=== PATIENT | female | born 1930 | race Two or more races ===

== ENCOUNTER 2019-02-08 15:17 | Inpatient (IN) | payer MEDICARE, BC ==
[~2019-02-08] VITALS: Ht 162.6 cm; Wt 85.3 kg
[2019-02-08 02:10] VITALS: BP 179/68
--- NOTE | 2019-02-08 15:30 | NUR ---
PT [id number], SENT BY JAIDA FOR HIGH BP 233/88. PT AAOX4, BREATHING EVEN AND UNLABORED ON ROOM AIR W/ NAD NOTED. WILL CONTINUE TO MONITOR FOR SAFETY. PT CONNECTED TO MONITOR AND POX.
[2019-02-08] MEDS ORDERED: FEBU40TA PO (15:37)
[2019-02-08] MEDS ORDERED: NYST15OI TP (15:37)
[2019-02-08] MEDS ORDERED: ALBU8.5H8 IH (15:37)
[2019-02-08] MEDS ORDERED: CLON0.1T PO (15:37)
[2019-02-08] MEDS ORDERED: OXYC-128 PO (15:37)
[2019-02-08] MEDS ORDERED: METO25TA3 PO (15:37)
[2019-02-08] MEDS ORDERED: APIX5TAB PO (15:37)
[2019-02-08] MEDS ORDERED: EPOE1VIA12 SQ (15:37)
[2019-02-08] MEDS ORDERED: TRAM50TA2 PO (15:37)
[2019-02-08] MEDS ORDERED: INSU100V27 SQ (15:37)
[2019-02-08] MEDS ORDERED: ZINC1CAP2 PO (15:37)
[2019-02-08] MEDS ORDERED: ATOR10TA PO (15:37)
[2019-02-08] MEDS ORDERED: ASCO500T9 PO (15:37)
[2019-02-08] MEDS ORDERED: ACET-868 PO (15:37)
[2019-02-08] MEDS ORDERED: FURO-144 PO (15:37)
[2019-02-08] MEDS ORDERED: PANT40TA2 PO (15:37)
[2019-02-08] MEDS ORDERED: ZOLP5TAB8 PO (15:37)
[2019-02-08] MEDS ORDERED: METO5TAB87 PO (15:37)
[2019-02-08] MEDS ORDERED: BENZ-13 PO (15:37)
[2019-02-08] MEDS ORDERED: POLY17PO4 PO (15:37)
[2019-02-08] MEDS ORDERED: FOLI0.8T PO (15:37)
[2019-02-08] MEDS ORDERED: POTA10TA10 PO (15:37)
[2019-02-08] MEDS ORDERED: ONDA4TAB5 PO (15:37)
[2019-02-08] MEDS ORDERED: ALLA266C2 TP (15:37)
[2019-02-08] MEDS ORDERED: NEOM1PAC2 TP (15:37)
[2019-02-08] MEDS ORDERED: LOSA25TA27 PO (15:37)
[2019-02-08] MEDS ORDERED: ASPI-1152 PO (15:37)
[2019-02-08 16:08] LABS: BASOPHILS # (AUTO) 0.1 /CMM (0.0-0.2); BASOPHILS % (AUTO) 0.9 % (0.0-2.0); EOSINOPHILS % (AUTO) 0.9 % (0.0-6.0); HEMATOCRIT 34 % (33-45); HEMOGLOBIN 10.7 g/dL (11.5-14.8); LYMPHOCYTES # (AUTO) 1.7 /CMM (0.8-4.8); LYMPHOCYTES % (AUTO) 15.3 % (20.0-44.0); MEAN CORPUSCULAR HGB CONC 32 g/dl (31.0-36.0); MEAN CORPUSCULAR VOLUME 83 fL (82-100); MONOCYTES # (AUTO) 0.8 /CMM (0.1-1.30); MONOCYTES % (AUTO) 7.6 % (2.0-12.0); NEUTROPHILS # (AUTO) 8.3 /CMM (1.8-8.9); NEUTROPHILS % (AUTO) 75.3 % (43.0-81.0); PLATELET COUNT (AUTO) 697 /CMM (150-450); RED BLOOD CELL COUNT(AUTO) 4.11 MIL/uL (4.0-5.2)
--- NOTE | 2019-02-08 16:22 | NUR ---
ULTRASOUND AT BEDSIDE
[2019-02-08] MEDS ORDERED: DEXTROSE 50%-WATER 50 ML DISP.SYRIN IV PRN (17:30)
[2019-02-08] MEDS ORDERED: ACETAMINOPHEN 325 MG TABLET PO PRN (17:30)
[2019-02-08] MEDS ORDERED: ONDANSETRON HCL/PF 4 MG/2 ML VIAL IVP PRN (17:30)
[2019-02-08] MEDS ORDERED: ALBUTEROL FS 2.5 MG/3 ML VIAL.NEB NEB PRN (17:30)
[2019-02-08] MEDS ORDERED: ZOLPIDEM TARTRATE 5 MG TABLET PO PRN (17:30)
[2019-02-08] MEDS ORDERED: TRAMADOL HCL 50 MG TABLET PO PRN (17:30)
[2019-02-08 17:39] LABS: CALCIUM, SERUM 9.1 mg/dL (8.5-10.1); CARBON DIOXIDE 25 mmol/L (21-32); CHLORIDE 104 mmol/L (98-107); CREATININE 1.2 mg/dL (0.6-1.3); GLUCOSE 234 mg/dL (74-106); POTASSIUM 4.1 mmol/L (3.5-5.1); SODIUM SERUM 135 mmol/L (136-145); UREA NITROGEN, BLOOD 14 mg/dL (7-18)
--- NOTE | 2019-02-08 17:40 | NUR ---
PT REFUSING SECOND BLOOD DRAW
[2019-02-08 17:45] LABS: ALANINE AMINOTRANSFERASE 12 U/L (12-78); ALBUMIN 2.4 g/dL (3.4-5.0); ALKALINE PHOSPHATASE 105 U/L (46-116); ASPARTATE AMINOTRANSFERASE 20 U/L (15-37); BILIRUBIN,DIRECT 0.1 mg/dL (0.0-0.2); BILIRUBIN,TOTAL 0.2 mg/dL (0.2-1.0); TOTAL PROTEIN, SERUM 6.9 g/dL (6.4-8.2)
--- NOTE | 2019-02-08 17:57 | NUR ---
[employer] [place] PHONE# [phone]
--- NOTE | 2019-02-08 19:33 | NUR ---
PT WAS PROVIDED W/ BED MEDINA AND CLEAN NEW DIAPER. REMAINED WARM AND DRY. ON ONGOING MONITORING,
--- NOTE | 2019-02-08 19:57 | NUR ---
REPORT GIVEN TO [place] ON THIRD FLOOR
--- NOTE | 2019-02-08 20:10 | NUR ---
MS/RN RECEIVED PATIENT FROM [facility] VIA [facility]. PATIENT IS AWAKE, ALERT, ORIENTED, COMFORTABLE, NO C/O PAIN, NO DISTRESS NOTED, ADMISSION DONE PER PROTOCOL, PHOTOS ON TAKEN WITH PATIENT'S PERMISSION, PLAN OF CARE DISCUSSED WITH THE PATIENT VERBALIZED UNDERSTANDING AND AGREEMENT. TAUGHT THE USE OF CALL LIGHT AND PLACED IT AT BEDSIDE WITHIN REACH. FALL PRECAUTIONS PER PROTOCOL. WILL MONITOR.
--- NOTE | 2019-02-08 20:17 | NUR ---
PT WAS TRANSFERRED TO 313-2 UNDER ACLS
[2019-02-08] MEDS: CLONIDINE HCL 0.1 MG TABLET PO PRN (20:39)
--- NOTE | 2019-02-08 20:39 | NUR ---
MS/RN BP 179/68, PATIENT IS ASYMPTOMATIC, CLONIDINE 0.1 MG PO WAS GIVEN ORDERED. WILL MONITOR.
[2019-02-08 21:00] VITALS: BP 179/68
[2019-02-08] MEDS: POTASSIUM CHLORIDE 10 MEQ TABLET.SA PO SCH (21:00)
[2019-02-08] MEDS: oxyCODONE/APAP (5/325 MG) 1 UDTAB TABLET PO PRN (21:27)
[2019-02-08] MEDS: BLOOD SUGAR DIAGNOSTIC 1 EACH STRIP IN SCH (22:00)
--- NOTE | 2019-02-08 22:57 | NUR ---
MS/RN SON WYATT DESOUZA CALLED (PER PATIENT HE IS THE DPOA), WANTS TO SPEAK TO HIS MOTHER. HAD THE OPPORTUNITY TO ASK SON IF HE HAS THE ADVANCE DIRECTIVE OF HIS MOTHER, PER SON " I DON'T WANT TO TALK ABOUT IT AT THIS TIME." CALL WAS THEN TRANSFERRED TO THE PATIENT'S ROOM AND THEY TALKED.
[2019-02-08] MEDS: ATORVASTATIN 10 MG TABLET PO SCH (23:09)
--- NOTE | 2019-02-08 23:11 | NUR ---
MS/RN THE ACCU CHECK BLOOD SUGAR AT 2100 WAS 176, PATIENT REFUSED INSULIN.
[2019-02-09] VITALS (7 sets, daily range): BP systolic 143–193; BP diastolic 63–71
--- NOTE | 2019-02-09 02:01 | NUR ---
MS/RN PATIENT IS SLEEPING AT THIS TIME, APPEAR COMFORTABLE, NO DISTRESS NOTE, CALL LIGHT IN REACH. WILL CONTINUE TO MONITOR.
[2019-02-09] MEDS: oxyCODONE/APAP (5/325 MG) 1 UDTAB TABLET PO PRN (04:17)
[2019-02-09] MEDS: CLONIDINE HCL 0.1 MG TABLET PO PRN ×2 (05:24→10:48)
--- NOTE | 2019-02-09 05:28 | NUR ---
MS/RN BP 183/70 ONE HOUR AFTER PERCOCET, CLONIDINE 0.1 MG PO WAS GIVEN ORDERED. WILL CONTINUE TO MONITOR.
--- NOTE | 2019-02-09 06:16 | NUR ---
MS/RN PATIENT REFUSED BLOOD DRAW.
--- NOTE | 2019-02-09 06:25 | NUR ---
MS/RN ACCU CHECK BLOOD SUGAR 162, PATIENT REFUSED INSULIN. PATIENT IS AWAKE, ALERT, ORIENTED, COMFORTABLE, NO DISTRESS NOTED, ALL NEEDS ATTENDED AT THIS TIME, WILL CONTINUE TO MONITOR.
[2019-02-09] MEDS: BLOOD SUGAR DIAGNOSTIC 1 EACH STRIP IN SCH ×4 (06:26→22:00)
[2019-02-09] MEDS: PANTOPRAZOLE 40 MG TABLET.DR PO SCH (07:30)
--- NOTE | 2019-02-09 07:50 | NUR ---
ms rn received on bed, awake,alert,oriented x4,not in any form of distress, respirations even and unlabored,no sob noted, lungs are diminished,abdomen soft,positive, bowel sounds, denies pain at this time, all needs attended.
--- NOTE | 2019-02-09 08:00 | NUR ---
ms vance breakfast served, refused meds, will take later.
[2019-02-09] MEDS: NITROGLYCERIN 30 GM TUBE TP SCH ×2 (09:00→20:20)
[2019-02-09] MEDS ORDERED: LOSARTAN POTASSIUM 25 MG TABLET PO SCH (09:00)
[2019-02-09] MEDS ORDERED: ULORIC 40MG PO SCH (09:00)
--- NOTE | 2019-02-09 10:20 | NUR ---
ms rn due meds given,tolerated well, son at bedside.
[2019-02-09] MEDS: ASCORBIC ACID 500 MG TABLET PO SCH (10:48)
[2019-02-09] MEDS: BENZONATATE 100 MG CAPSULE PO SCH ×3 (10:48→18:51)
[2019-02-09] MEDS: ASPIRIN EC 81 MG TABLET.DR PO SCH (10:48)
[2019-02-09] MEDS: ZINC SULFATE 220 MG CAPSULE PO SCH ×2 (10:53→18:55)
[2019-02-09] MEDS: POTASSIUM CHLORIDE 10 MEQ TABLET.SA PO SCH ×2 (10:53→20:20)
[2019-02-09] MEDS: FOLIC ACID 1 MG TABLET PO SCH (10:54)
[2019-02-09] MEDS: FUROSEMIDE 40 MG TABLET PO SCH (10:54)
[2019-02-09] MEDS: VALSARTAN 80 MG TABLET PO SCH (10:54)
[2019-02-09] MEDS: METOPROLOL SUCCINATE 25 MG TAB.SR.24H PO SCH (10:54)
[2019-02-09] MEDS: hydrALAZINE HCL 50 MG TABLET PO SCH ×3 (10:55→18:51)
--- NOTE | 2019-02-09 11:00 | NUR ---
ms rn was seen by billie guevara/ orders made and carried out.
[2019-02-09] MEDS: APIXABAN 5 MG TABLET PO SCH ×2 (11:02→18:56)
[2019-02-09] MEDS: Z GUARD REMEDY 2 OZ OINT TP SCH ×3 (11:12→18:56)
[2019-02-09 12:22] LABS: BASOPHILS % (AUTO) 0.5 % (0.0-2.0); EOSINOPHILS % (AUTO) 1.2 % (0.0-6.0); HEMATOCRIT 32 % (33-45); HEMOGLOBIN 10.1 g/dL (11.5-14.8); LYMPHOCYTES # (AUTO) 1.5 /CMM (0.8-4.8); LYMPHOCYTES % (AUTO) 17.2 % (20.0-44.0); MEAN CORPUSCULAR HGB CONC 32 g/dl (31.0-36.0); MEAN CORPUSCULAR VOLUME 82 fL (82-100); MONOCYTES # (AUTO) 0.7 /CMM (0.1-1.30); NEUTROPHILS # (AUTO) 6.3 /CMM (1.8-8.9); NEUTROPHILS % (AUTO) 73.1 % (43.0-81.0); PLATELET COUNT (AUTO) 582 /CMM (150-450); RED BLOOD CELL COUNT(AUTO) 3.83 MIL/uL (4.0-5.2); WHITE BLOOD COUNT (AUTO) 8.7 K/uL (4.3-11.0)
[2019-02-09 12:31] LABS: CALCIUM, SERUM 8.7 mg/dL (8.5-10.1); CREATININE 1.2 mg/dL (0.6-1.3); MAGNESIUM 1.6 mg/dL (1.8-2.4); PHOSPHORUS 3.7 mg/dL (2.5-4.9); POTASSIUM 4.2 mmol/L (3.5-5.1)
[2019-02-09] MEDS: INSULIN REGULAR, HUMAN 100 UNIT/ML 3 ML VIAL SQ PRN ×2 (13:25→18:55)
[2019-02-09 13:49] LABS: THYROID STIMULATING HORMONE 3.184 uIU/mL (0.358-3.74)
--- NOTE | 2019-02-09 16:00 | NUR ---
ms rn on bed, no distress noted.
--- NOTE | 2019-02-09 18:00 | NUR ---
ms rn on bed, a dose of hydralazine given po for high b/p will reevaluate later.
[2019-02-09] MEDS: EPOETIN ALFA (10,000 UNIT) 10,000 UNIT/ML VIAL SQ SCH (18:52)
--- NOTE | 2019-02-09 19:05 | NUR ---
MS RN NOTES RECEIVED PT IN BED AWAKE AND ABLE TO MAKE NEEDS KNOWN. PT A/O X3. RESPIRATIONS EVEN AND UNLABORED WITH NO S/S OF ACUTE DISTRESS OR SOB NOTED. NO COMPLAINTS OF PAIN AT THIS TIME. PT NOTED WITH LAC #20G PATENT AND INTACT AND SL. SAFETY MEASURES IN PLACE WITH BED IN LOWEST LOCKED POSITION WITH SIDE RAILS UP X2. CALL LIGHT WITHIN REACH. WILL CONTINUE TO MONITOR.
[2019-02-09] MEDS: Magnesium 1GM/D5W 100ML PREMIX 100 ML IV SCH ×2 (20:01→21:16)
[2019-02-09] MEDS: ATORVASTATIN 10 MG TABLET PO SCH (22:00)
--- NOTE | 2019-02-09 22:32 | NUR ---
MS RN NOTES PT REFUSED 2200 MEDICATION LIPITOR WELL ACCUCHECK. WILL CONTINUE TO MONITOR.
[2019-02-10] MEDS: BLOOD SUGAR DIAGNOSTIC 1 EACH STRIP IN SCH ×4 (07:04→21:47)
--- NOTE | 2019-02-10 07:28 | NUR ---
MS RN NOTES RECEIVED PT IN BED AWAKE AND ABLE TO MAKE NEEDS KNOWN. PT A/O X3. RESPIRATIONS EVEN AND UNLABORED WITH NO S/S OF ACUTE DISTRESS OR SOB NOTED NOTED THROUGHOUT SHIFT. NO COMPLAINTS OF PAIN AT THIS TIME. PT NOTED WITH LAC #20G PATENT AND INTACT AND SL. SAFETY MEASURES IN PLACE WITH BED IN LOWEST LOCKED POSITION WITH SIDE RAILS UP X2. CALL LIGHT WITHIN REACH. WILL ENDORSE TO ONCOMING NURSE FOR YANETH.
[2019-02-10] MEDS: PANTOPRAZOLE 40 MG TABLET.DR PO SCH (07:30)
--- NOTE | 2019-02-10 07:39 | NUR ---
MS RN NOTES PT REFUSED SS COVERAGE OF INSULIN. PT ALSO REFUSED MORNING LABS AT THIS TIME.
--- NOTE | 2019-02-10 08:00 | NUR ---
MS RN NOTES PATIENT IN BED RESTING IN BED. PATIENT ALERT, ORIENTED X3. PATIENT DENIES ANY PAIN. PERIPHERAL IV INTACT PATENT. BED IN LOW LOCKED POSITION, CALL LIGHT WITHIN REACH. WILL CONTINUE TO MONITOR.
[2019-02-10] MEDS: FUROSEMIDE 40 MG TABLET PO SCH (08:53)
[2019-02-10] MEDS: ZINC SULFATE 220 MG CAPSULE PO SCH ×2 (08:53→16:24)
[2019-02-10] MEDS: ASPIRIN EC 81 MG TABLET.DR PO SCH (08:54)
[2019-02-10] MEDS: BENZONATATE 100 MG CAPSULE PO SCH ×3 (08:55→16:24)
[2019-02-10] MEDS: ASCORBIC ACID 500 MG TABLET PO SCH (08:55)
[2019-02-10] MEDS: POTASSIUM CHLORIDE 10 MEQ TABLET.SA PO SCH ×2 (08:55→21:37)
[2019-02-10] MEDS: FOLIC ACID 1 MG TABLET PO SCH (08:55)
[2019-02-10] MEDS: Z GUARD REMEDY 2 OZ OINT TP SCH ×3 (08:56→16:26)
[2019-02-10] MEDS: APIXABAN 5 MG TABLET PO SCH ×2 (08:58→16:25)
[2019-02-10] MEDS: METOPROLOL SUCCINATE 25 MG TAB.SR.24H PO SCH (09:02)
[2019-02-10] MEDS: VALSARTAN 80 MG TABLET PO SCH ×2 (09:02→16:24)
[2019-02-10] MEDS: hydrALAZINE HCL 50 MG TABLET PO SCH ×3 (09:02→16:24)
[2019-02-10] MEDS: NITROGLYCERIN 30 GM TUBE TP SCH ×2 (09:52→21:38)
[2019-02-10 10:30] VITALS: BP 160/59
[2019-02-10 10:58] LABS: CALCIUM, SERUM 9.5 mg/dL (8.5-10.1); CREATININE 1.2 mg/dL (0.6-1.3); POTASSIUM 4.2 mmol/L (3.5-5.1)
[2019-02-10] MEDS: INSULIN REGULAR, HUMAN 100 UNIT/ML 3 ML VIAL SQ PRN ×2 (12:44→17:17)
[2019-02-10] MEDS ORDERED: VALSARTAN 80 MG TABLET PO SCH (13:30)
[2019-02-10 16:00] VITALS: BP 167/64
[2019-02-10] MEDS: CLONIDINE HCL 0.1 MG TABLET PO PRN (18:37)
--- NOTE | 2019-02-10 19:01 | NUR ---
MS RN NOTES PATIENT IN BED RESTING NO SOB OR ACUTE DISTRESS NOTED. ALL NEEDS MET. ALL DUE MEDICATIONS ADMINISTERED. NO ACUTE CHANGES NOTED DURING SHIFT. BLOOD PRESSURE MANAGED WITH MEDICATIONS. MD AWARE OF READING. WILL ENDORSE CARE TO PM SHIFT.
--- NOTE | 2019-02-10 19:10 | NUR ---
MS/RN NOTES RECEIVED PT. LYING IN BED RESTING. PT. IS EASILY AROUSABLE TO NAME. PT. IS AWAKE, ALERT AND ORIENTED X3. BREATHING EVEN AND UNLABORED ON ROOM AIR. NO SOB, RESPIRATORY DISTRESS OR COMPLAINTS OF PAIN NOTED AT THIS TIME. PT. WITH LEFT AC 20 GAUGE IV SALINE LOCK PRESENT, PATENT AND INTACT. BED LOCKED AND IN LOWEST POSITION, SIDE RAILS UP X3, BED ALARM ON, CALL LIGHT WITHIN REACH, WILL CONTINUE TO MONITOR.
[2019-02-10 20:00] VITALS: BP 142/43
[2019-02-10] MEDS: ATORVASTATIN 10 MG TABLET PO SCH (21:37)
[2019-02-11] MEDS: oxyCODONE/APAP (5/325 MG) 1 UDTAB TABLET PO PRN ×2 (01:04→15:52)
[2019-02-11] MEDS: BLOOD SUGAR DIAGNOSTIC 1 EACH STRIP IN SCH ×4 (06:38→21:49)
--- NOTE | 2019-02-11 06:50 | NUR ---
MS/RN NOTES PT. IS LYING IN BED. PT. IS AWAKE, ALERT AND ORIENTED X2-3. BREATHING EVEN AND UNLABORED ON ROOM AIR. NO SOB, RESPIRATORY DISTRESS OR COMPLAINTS OF PAIN NOTED AT THIS TIME. PT. WITH LEFT AC 20 GAUGE IV SALINE LOCK PRESENT, PATENT AND INTACT. ALL PT. NEEDS MET. PT. REFUSED TURNING AND REPOSITIONING Q2H AND NEEDED THROUGHOUT THE NIGHT. EDUCATED PT. ON IMPORTANCE OF TURNING AND REPOSITIONING, PT. VERBALIZED UNDERSTANDING AND CONTINUED TO REFUSE. BED LOCKED AND IN LOWEST POSITION, SIDE RAILS UP X3, BED ALARM ON, CALL LIGHT WITHIN REACH, WILL ENDORSE TO DAYSHIFT NURSE FOR CONTINUITY OF CARE.
--- NOTE | 2019-02-11 07:29 | NUR ---
MS RN OPENING NOTES PATIENT RECEIVED IN BED ASLEEP. PATIENT IS BREATHING EVENLY, WITH SYMMETRICAL CHEST WALL ELEVATION AND NO SIGNS OF DISTRESS NOTES. PATIENT HAS A SL ON LAC GAUGE # 20. NO SIGNS OF INFILTRATION NOTES AT THE SITE. SAFETY PRECAUTIONS IN PLACE: BED IN LOW POSITION AND LOCKED, RAILS UP X 2, CALL LIGHT WITHIN REACH. WILL CONTINUE TO MONITOR THE PATIENT.
[2019-02-11 08:00] VITALS: BP 173/67
[2019-02-11] MEDS: ASCORBIC ACID 500 MG TABLET PO SCH (08:30)
[2019-02-11] MEDS: METOPROLOL SUCCINATE 25 MG TAB.SR.24H PO SCH (08:30)
[2019-02-11] MEDS: POTASSIUM CHLORIDE 10 MEQ TABLET.SA PO SCH ×2 (08:30→21:11)
[2019-02-11] MEDS: FOLIC ACID 1 MG TABLET PO SCH (08:30)
[2019-02-11] MEDS: PANTOPRAZOLE 40 MG TABLET.DR PO SCH (08:31)
[2019-02-11] MEDS: FUROSEMIDE 40 MG TABLET PO SCH (08:31)
[2019-02-11] MEDS: APIXABAN 5 MG TABLET PO SCH ×2 (08:33→18:26)
[2019-02-11] MEDS: ZINC SULFATE 220 MG CAPSULE PO SCH ×2 (09:19→18:25)
[2019-02-11] MEDS: BENZONATATE 100 MG CAPSULE PO SCH ×3 (09:19→18:25)
[2019-02-11] MEDS: hydrALAZINE HCL 50 MG TABLET PO SCH ×3 (09:19→17:00)
[2019-02-11] MEDS: VALSARTAN 80 MG TABLET PO SCH ×2 (09:20→18:30)
[2019-02-11] MEDS: ASPIRIN EC 81 MG TABLET.DR PO SCH (09:20)
[2019-02-11] MEDS: Z GUARD REMEDY 2 OZ OINT TP SCH ×3 (09:21→18:27)
[2019-02-11] MEDS: NITROGLYCERIN 30 GM TUBE TP SCH ×2 (09:21→21:14)
[2019-02-11] MEDS: AMLODIPINE BESYLATE 10 MG TABLET PO SCH (11:47)
[2019-02-11] MEDS: INSULIN REGULAR, HUMAN 100 UNIT/ML 3 ML VIAL SQ PRN ×3 (12:47→21:55)
--- NOTE | 2019-02-11 15:39 | NUR ---
RN NOTES OFFERED PATIENT TO OFF LOAD HER FEET THROUGHOUT THE DAY X2, BY PROVIDING A PILLOW UNDER HER KNEES AND LOWER LEGS. PATIENT REFUSED DUE TO DISCOMFORT. WILL OFFER AGAIN LATER.
[2019-02-11 16:00] VITALS: BP 136/52
--- NOTE | 2019-02-11 18:01 | NUR ---
M/S RN NOTES PATIENT GOING FOR CT SCAN OF ABDOMEN/PELVIS WITH [facility] VIA HOSPITAL BED. PATIENT IN NO ACUTE DISTRESS. PATIENT COMPLAINING OF ABDOMINAL PAIN, TOLERABLE AT THIS TIME WITH PAIN MEDICATION PRESCRIBED BY MD.
--- NOTE | 2019-02-11 18:58 | NUR ---
M/S RN NOTES PATIENT AWAKE, LYING IN BED, NO RESPIRATORY DISTRESS. NO C/O PAIN AT THIS TIME. SKIN WARM TO TOUCH, IV ACCESS SITE INTACT AND PATENT. PATIENT'S NEEDS ATTENDED. BED ON LOWEST LOCKED POSITION, CALL LIGHT WITHIN REACH. WILL ENDORSE TO ONCOMING NURSE.
--- NOTE | 2019-02-11 19:15 | NUR ---
RN medsurg opening notes Received Pt from morning nurse. Pt is alert and oriented X2-3. Pt is laying in bed comfortably watching TV. Respiration is normal in room air. No SOB. No S/S of distress noted. IV sites at LAC# 20 is clean, intact, patent and flush without resistance. Keep Pt clean, dry, warm and comfortable. Safety precautions is maintained. Bed at low position, brakes locked, side rails upX3 and call light is within reach. Will continue to monitor.
[2019-02-11 20:00] VITALS: BP 135/56
[2019-02-11 21:02] VITALS: BP 137/67
[2019-02-11] MEDS: METOPROLOL TARTRATE 50 MG TABLET PO SCH (21:11)
[2019-02-11] MEDS: ATORVASTATIN 10 MG TABLET PO SCH (21:11)
[2019-02-11 22:48] VITALS: BP 112/42
[2019-02-12] MEDS: BLOOD SUGAR DIAGNOSTIC 1 EACH STRIP IN SCH ×2 (06:30→11:45)
[2019-02-12] MEDS: INSULIN REGULAR, HUMAN 100 UNIT/ML 3 ML VIAL SQ PRN ×2 (06:31→11:44)
--- NOTE | 2019-02-12 07:00 | NUR ---
RN medsurg closing notes Pt is resting in bed comfortably. Respiration is normal in room air. No SOB. No S/S of distress noted. VS is stable. Afebrile. IV sites LAC# 20 is clean, intact, patent and SL. Routine meds were given as ordered. Kept Pt clean, dry, warm and comfortable. All needs met and attended. Safety precautions is maintained. Bed at low position, brakes locked, side rails upX3 and call light is within reach. Will endorse to morning nurse for YANETH.
--- NOTE | 2019-02-12 07:37 | NUR ---
MS RN OPENING NOTE RECEIVED PATIENT IN BED SLEEPING AT THIS TIME. PATIENT IN NO ACUTE DISTRESS. NO SOB NOTED. PATIENT BREATHING IS EVEN AND UNLABORED. PATIENT BED ALARM IS ON. PATIENT SAFETY PRECAUTIONS IN PLACE. PATIENT BED IS LOCKED AND IN LOWEST POSITION. CALL LIGHT WITHIN REACH. WILL CONTINUE TO MONITOR.
[2019-02-12 08:00] VITALS: BP 139/50
[2019-02-12] MEDS: PANTOPRAZOLE 40 MG TABLET.DR PO SCH (08:10)
[2019-02-12] MEDS: APIXABAN 5 MG TABLET PO SCH ×2 (08:56→16:46)
[2019-02-12] MEDS: NITROGLYCERIN 30 GM TUBE TP SCH (08:58)
[2019-02-12] MEDS: ZINC SULFATE 220 MG CAPSULE PO SCH ×2 (08:59→16:47)
[2019-02-12] MEDS: VALSARTAN 80 MG TABLET PO SCH ×2 (08:59→16:47)
[2019-02-12] MEDS: ASPIRIN EC 81 MG TABLET.DR PO SCH (08:59)
[2019-02-12] MEDS: BENZONATATE 100 MG CAPSULE PO SCH ×3 (08:59→16:47)
[2019-02-12] MEDS: POTASSIUM CHLORIDE 10 MEQ TABLET.SA PO SCH (09:00)
[2019-02-12] MEDS: ASCORBIC ACID 500 MG TABLET PO SCH (09:00)
[2019-02-12] MEDS: FOLIC ACID 1 MG TABLET PO SCH (09:00)
[2019-02-12] MEDS: FUROSEMIDE 40 MG TABLET PO SCH (09:00)
[2019-02-12] MEDS: METOPROLOL TARTRATE 50 MG TABLET PO SCH (09:00)
[2019-02-12] MEDS: AMLODIPINE BESYLATE 10 MG TABLET PO SCH (09:00)
[2019-02-12] MEDS: hydrALAZINE HCL 50 MG TABLET PO SCH ×3 (09:00→16:47)
[2019-02-12] MEDS: Z GUARD REMEDY 2 OZ OINT TP SCH ×3 (09:05→16:52)
[2019-02-12] MEDS: oxyCODONE/APAP (5/325 MG) 1 UDTAB TABLET PO PRN (12:09)
--- NOTE | 2019-02-12 12:53 | NUR ---
MS RN NOTE PER MARIE REECE DC NITRO OINTMENT.
[2019-02-12] MEDS ORDERED: NA PHOS,M-B/NA PHOS,DI-BA 1 EA ENEMA RC PRN (13:00)
[2019-02-12] MEDS ORDERED: BISACODYL SUPP (10 MG) 10 MG/SUPP.RECT SUPP.RECT RC PRN (13:00)
[2019-02-12] MEDS ORDERED: METO50TA16 PO (14:21)
[2019-02-12] MEDS ORDERED: VALS80TA2 PO (14:21)
[2019-02-12] MEDS ORDERED: AMLO10TA7 PO (14:21)
[2019-02-12] MEDS ORDERED: HYDR-4077 PO (14:21)
[2019-02-12 16:00] VITALS: BP 149/57
[2019-02-12 16:01] LABS: BASOPHILS # (AUTO) 0.1 /CMM (0.0-0.2); BASOPHILS % (AUTO) 0.7 % (0.0-2.0); EOSINOPHILS % (AUTO) 0.7 % (0.0-6.0); HEMATOCRIT 36 % (33-45); HEMOGLOBIN 10.9 g/dL (11.5-14.8); LYMPHOCYTES # (AUTO) 0.6 /CMM (0.8-4.8); LYMPHOCYTES % (AUTO) 3.9 % (20.0-44.0); MEAN CORPUSCULAR HGB CONC 30 g/dl (31.0-36.0); MEAN CORPUSCULAR VOLUME 86 fL (82-100); MONOCYTES # (AUTO) 1.4 /CMM (0.1-1.30); MONOCYTES % (AUTO) 8.2 % (2.0-12.0); NEUTROPHILS # (AUTO) 14.2 /CMM (1.8-8.9); NEUTROPHILS % (AUTO) 86.5 % (43.0-81.0); PLATELET COUNT (AUTO) 657 /CMM (150-450); RED BLOOD CELL COUNT(AUTO) 4.21 MIL/uL (4.0-5.2); WHITE BLOOD COUNT (AUTO) 16.4 K/uL (4.3-11.0)
[2019-02-12 16:17] LABS: BAND % (MANUAL) 1 % (0.0-5.0); LYMPHOCYTES % (MANUAL) 8 % (16-48); MONOCYTES % (MANUAL) 8 % (0-11.0); NEUTROPHILS % (MANUAL) 83 (42-76)
[2019-02-12] MEDS ORDERED: INFLUENZA VACCINE 2019-20 0.5 ML DISP.SYRIN IM ONE (16:30)
[2019-02-12 16:47] VITALS: BP 139/62
[2019-02-12] MEDS: EPOETIN ALFA (10,000 UNIT) 10,000 UNIT/ML VIAL SQ SCH (16:52)
--- NOTE | 2019-02-12 17:41 | NUR ---
MS SIFTING OPERATOR NOTE PATIENT MEDICALLY STABLE FOR DISCHARGE. PATIENT IN NO ACUTE DISTRESS. NO SOB NOTED. PATIENT BREATHING IS EVEN AND UNLABORED. DC INSTRUCTIONS PROVIDED TO PATIENT AND SON. PATIENT AND SON VERBALIZED UNDERSTANDING. PATIENT ID BAND REMOVED. IV REMOVED. PATIENT SKIN ASSESSED, WITH NO NEW SKIN BREAKDOWN NOTED. PATIENT HAS ALL BELONGINGS WITH SON, AND PATIENT ACKNOWLEDGED AND SIGNED. PATIENT KEPT CLEAN, DRY AND COMFORTABLE THROUGHOUT SHIFT. PATIENT TURNED AND REPOSITIONED Q2H AND EXTREMITIES OFFLOADED ON PILLOWS. NEEDS AND CONCERNS ADDRESSED. [facility] REPORT GIVEN TO JOSÉ LUIS RN. PATIENT PICKED UP BY EMT AND WENT BY [facility] TO AMBULANCE. MD AWARE OF DISCHARGE.
== END 2019-02-12 17:43 | DRG 304 ==
LOC: ER 15:27 → TELE 19:35 → MED 02-09 08:40
PROVIDERS: ADMIT Nurse Practitioner Acute Care; ATTEND Nurse Practitioner Acute Care
DX: I16.0 Hypertensive urgency (principal); I50.33 Acute on chronic diastolic (congestive) heart failure; D68.59 Other primary thrombophilia; I25.10 Atherosclerotic heart disease of native coronary artery without angina pectoris; I48.0 Paroxysmal atrial fibrillation; E11.9 Type 2 diabetes mellitus without complications; I27.20 Pulmonary hypertension, unspecified; I11.0 Hypertensive heart disease with heart failure; J44.9 Chronic obstructive pulmonary disease, unspecified; Z95.5 Presence of coronary angioplasty implant and graft; Z79.01 Long term (current) use of anticoagulants; E78.5 Hyperlipidemia, unspecified; G89.29 Other chronic pain; M10.9 Gout, unspecified; E66.9 Obesity, unspecified; G47.33 Obstructive sleep apnea (adult) (pediatric); M54.9 Dorsalgia, unspecified; Z87.891 Personal history of nicotine dependence; K59.00 Constipation, unspecified; Z68.35 Body mass index [BMI] 35.0-35.9, adult; R10.9 Unspecified abdominal pain
CPT/HCPCS: 36415; 71045-TC; 80048-TC; 80061-TC; 80076-TC; 82962-TC; 83735-TC; 84100-TC; 84443-TC; 84484-TC; 85025-TC; 87081-TC; 93307-TC; 93970-TC; 97116-TC; 97530-TC; G0378; J0885; J1815; J2405; J3475; J7030; Q2036

== ENCOUNTER 2019-03-16 14:49 | Inpatient (IN) | payer MEDICARE, BC ==
[~2019-03-16] VITALS: Ht 160 cm; Wt 78.9 kg
[~2019-03-16 14:49] MED LIST: ACET-868 PO; ALBU8.5H8 IH; ALLA266C2 TP; AMLO10TA7 PO; APIX5TAB PO; ASCO500T9 PO; ASPI-1152 PO; ATOR10TA PO; BENZ-13 PO; CLON0.1T PO; EPOE1VIA12 SQ; FEBU40TA PO; FOLI0.8T PO; FURO-144 PO; HYDR-4077 PO; INSU100V27 SQ; LOSA25TA27 PO; METO50TA16 PO; METO5TAB87 PO; NEOM1PAC2 TP; NYST15OI TP; ONDA4TAB5 PO; OXYC-128 PO; PANT40TA2 PO; POLY17PO4 PO; POTA10TA10 PO; TRAM50TA2 PO; VALS80TA2 PO; ZINC1CAP2 PO; ZOLP5TAB8 PO
--- NOTE | 2019-03-16 14:52 | NUR ---
AAOX3, BIB son to ER from [facility], located within [facility] for SOB with SPO2=88% on RA. According to the son, she finished taking Z-pack yesterday for PNA. Patient also c/o wound bleeding to left inner thigh. Patient is on Eliquis. Skin is warm and dry. Placed on the monitor. Patient placed on NC at 2L/min. Dr Reynaga made aware. Addendum: 03/16/19 at 1547 by MILE Bilateral lungs diminished on auscultation.
[2019-03-16 15:49] LABS: BASOPHILS # (AUTO) 0.1 /CMM (0.0-0.2); BASOPHILS % (AUTO) 0.8 % (0.0-2.0); EOSINOPHILS % (AUTO) 0.7 % (0.0-6.0); HEMATOCRIT 32 % (33-45); HEMOGLOBIN 9.8 g/dL (11.5-14.8); LYMPHOCYTES # (AUTO) 1.3 /CMM (0.8-4.8); MEAN CORPUSCULAR HGB CONC 31 g/dl (31.0-36.0); MEAN CORPUSCULAR VOLUME 81 fL (82-100); MONOCYTES % (AUTO) 7.4 % (2.0-12.0); NEUTROPHILS # (AUTO) 10.8 /CMM (1.8-8.9); NEUTROPHILS % (AUTO) 81.1 % (43.0-81.0); RED BLOOD CELL COUNT(AUTO) 3.88 MIL/uL (4.0-5.2); WHITE BLOOD COUNT (AUTO) 13.3 K/uL (4.3-11.0)
[2019-03-16 15:53] LABS: PLATELET COUNT (AUTO) 999 /CMM (150-450)
[2019-03-16 15:57] LABS: CALCIUM, SERUM 9.9 mg/dL (8.5-10.1); CARBON DIOXIDE 23 mmol/L (21-32); CHLORIDE 103 mmol/L (98-107); CREATININE 1.6 mg/dL (0.6-1.3); GLUCOSE 273 mg/dL (74-106); POTASSIUM 4.9 mmol/L (3.5-5.1); SODIUM SERUM 135 mmol/L (136-145); UREA NITROGEN, BLOOD 28 mg/dL (7-18)
[2019-03-16 16:09] LABS: ALANINE AMINOTRANSFERASE 12 U/L (12-78); ALBUMIN 3.1 g/dL (3.4-5.0); ALKALINE PHOSPHATASE 102 U/L (46-116); ASPARTATE AMINOTRANSFERASE 17 U/L (15-37); B-TYPE NATRIURETIC PEPTIDE 12182 PG/ML (0-125); BILIRUBIN,DIRECT 0.1 mg/dL (0.0-0.2); BILIRUBIN,TOTAL 0.4 mg/dL (0.2-1.0); TOTAL PROTEIN, SERUM 7.8 g/dL (6.4-8.2)
[2019-03-16] MEDS ORDERED: BENZ1LOZ58 MM (16:26)
[2019-03-16] MEDS ORDERED: CALC-534 PO (16:26)
[2019-03-16] MEDS ORDERED: LOPE2CAP40 PO (16:26)
[2019-03-16] MEDS ORDERED: MULT1TAB73 PO (16:26)
[2019-03-16] MEDS ORDERED: AZIT250T13 PO (16:26)
[2019-03-16] MEDS ORDERED: FUROSEMIDE 40 MG/4 ML VIAL ONE (16:28)
[2019-03-16] MEDS ORDERED: FUROSEMIDE 40 MG/4 ML VIAL IV ONE (16:30)
[2019-03-16 16:55] LABS: LYMPHOCYTES % (MANUAL) 9 % (16-48); MONOCYTES % (MANUAL) 8 % (0-11.0); NEUTROPHILS % (MANUAL) 81 (42-76)
[2019-03-16 16:56] LABS: EOSINOPHILS % (MANUAL) 2 % (0-4)
--- NOTE | 2019-03-16 17:00 | NUR ---
CALLED [facility], JENNIFERD KIERRA
--- NOTE | 2019-03-16 17:25 | NUR ---
CALLED NURSING SUP FOR BED
[2019-03-16] MEDS ORDERED: Z GUARD REMEDY 2 OZ OINT TP PRN (18:00)
[2019-03-16] MEDS: FUROSEMIDE 40 MG/4 ML VIAL IV SCH ×2 (18:00→23:38)
[2019-03-16] MEDS ORDERED: ZOLPIDEM TARTRATE 5 MG TABLET PO PRN (18:00)
[2019-03-16] MEDS ORDERED: ONDANSETRON HCL/PF 4 MG/2 ML VIAL IVP PRN (18:00)
[2019-03-16] MEDS ORDERED: ACETAMINOPHEN 325 MG TABLET PO PRN (18:00)
--- NOTE | 2019-03-16 18:30 | NUR ---
wheeled patient via gurney accompanied by RN and EMT in no distress. Linda RN at bedside to assume care.
[2019-03-16 18:40] VITALS: BP 158/63
--- NOTE | 2019-03-16 18:40 | NUR ---
MACHINIST INSTRUCTOR NOTES PT CAME FROM ER VIA STRETCHER. PT A/OX4. PT ON SUPPLEMENTARY OXYGEN AT 2LPM VIA NC, WITH NO RESPIRATORY DISTRESS NOTED. PT DENIES ANY PAIN OR DISCOMFORT AT THIS TIME. PIV TO RAC G20, FLUSHED WITH NS, INTACT AND OPERATIONAL. PT KEPT COMFORTABLE IN BED. VS TAKEN. PT'S BED IN LOWEST, LOCKED POSITION WITH SR X3. WILL ENDORSE TO INCOMING ADVENTURE EDUCATION TEACHER NURSE FOR ADMISSION PROCESS AND YANETH.
--- NOTE | 2019-03-16 18:43 | NUR ---
SPLICING MACHINE OPERATOR AUTOMATIC NOTES IVP LASIX 40MG SCHEDULED AT 1800 NOT GIVEN. PER WEB MARKETING SPECIALIST/EMILY, SAME MEDICATION AND DOSE GIVEN AT ER AT AROUND 1730. PT AWARE.
--- NOTE | 2019-03-16 18:43 | NUR ---
BIOLOGY LECTURER NOTES PT HOOKED ON TELEMONITORING SR 69.
[2019-03-16] MEDS ORDERED: ALBUTEROL FS 2.5 MG/0.5 ML VIAL.NEB NEB PRN (19:30)
[2019-03-16 20:40] VITALS: BP 149/61
[2019-03-17] VITALS: BP_SYST 141; BP_SYST 159; BP_DIAS 52; BP_DIAS 73
--- NOTE | 2019-03-17 03:48 | NUR ---
MS RN NOTES PATIENT REFUSED LAB DRAW- EDUCATED AND EXPLAINED THE IMPORTANCE AND STILL DENIED. WILL CONTINUE TO MONITOR.
[2019-03-17 04:00] VITALS: BP 159/73
[2019-03-17] MEDS: FUROSEMIDE 40 MG/4 ML VIAL IV SCH ×3 (05:25→17:03)
--- NOTE | 2019-03-17 06:14 | NUR ---
ASSIGNMENT DESK ASSISTANT CLOSING NOTES PATIENT CURRENTLY RESTING IN BED A/O X 4, COMPLAINTS SHE WAS NOT GETTING ENOUGH REST DUE TO CONSTANT INTERRUPTION. ON 2L OF O2 VIA NC BREATHING EVEN AND UNLABORED.NO COMPLAINTS OF PAIN OR DISCOMFORT. IV LOCATED ON R AC #20 SL. TELE MONITORING READING SR WITH PAC'S 67-69. SAFETY PRECAUTIONS IN PLACE WITH BED IN LOWEST POSITION, CALL LIGHT WITHIN REACH, BREAKS ON, SIDE RAIL S UP. PATIENT WAS KEPT CLEAN AND DRY THROUGHOUT THE NIGHT, ALL NEEDS ATTENDED TO. PATIENT WAS KEPT CLEAN AND DRY THROUGHOUT THE NIGHT, ALL NEEDS ATTENDED TO. WILL ENDORSE TO ONCOMING SHIFT ABOUT YANETH.
[2019-03-17 06:25] LABS: BASOPHILS # (AUTO) 0.1 /CMM (0.0-0.2); BASOPHILS % (AUTO) 0.7 % (0.0-2.0); EOSINOPHILS % (AUTO) 1.7 % (0.0-6.0); HEMATOCRIT 28 % (33-45); HEMOGLOBIN 8.9 g/dL (11.5-14.8); LYMPHOCYTES # (AUTO) 1.4 /CMM (0.8-4.8); LYMPHOCYTES % (AUTO) 12.6 % (20.0-44.0); MEAN CORPUSCULAR HGB CONC 32 g/dl (31.0-36.0); MEAN CORPUSCULAR VOLUME 81 fL (82-100); MONOCYTES # (AUTO) 0.8 /CMM (0.1-1.30); MONOCYTES % (AUTO) 7.6 % (2.0-12.0); NEUTROPHILS # (AUTO) 8.5 /CMM (1.8-8.9); NEUTROPHILS % (AUTO) 77.4 % (43.0-81.0); PLATELET COUNT (AUTO) 789 /CMM (150-450); RED BLOOD CELL COUNT(AUTO) 3.42 MIL/uL (4.0-5.2)
[2019-03-17 07:11] LABS: ALANINE AMINOTRANSFERASE 14 U/L (12-78); ALBUMIN 2.8 g/dL (3.4-5.0); ALKALINE PHOSPHATASE 83 U/L (46-116); ASPARTATE AMINOTRANSFERASE 12 U/L (15-37); BILIRUBIN,TOTAL 0.3 mg/dL (0.2-1.0); CALCIUM, SERUM 9.7 mg/dL (8.5-10.1); CARBON DIOXIDE 24 mmol/L (21-32); CHLORIDE 103 mmol/L (98-107); CREATININE 1.5 mg/dL (0.6-1.3); GLUCOSE 180 mg/dL (74-106); MAGNESIUM 1.8 mg/dL (1.8-2.4); PHOSPHORUS 3.7 mg/dL (2.5-4.9); POTASSIUM 4.1 mmol/L (3.5-5.1); SODIUM SERUM 137 mmol/L (136-145); TOTAL PROTEIN, SERUM 7.2 g/dL (6.4-8.2); UREA NITROGEN, BLOOD 25 mg/dL (7-18)
[2019-03-17 08:00] VITALS: BP 163/71
--- NOTE | 2019-03-17 08:00 | NUR ---
RN OPENING NOTE PT WAS RECEIVED IN BED AT LOWEST AND LOCKED POSITION WITH SIDE RAILS UPX2, A/O X4, BREATHING EVEN AND UNLABORED ON 2L VIA NC, NO S/S OF ANY DISTRESS OR PAIN NOTED AT THIS TIME, IV IS PATENT AND INTACT, SAFETY PRECAUTIONS IN PLACE, CALL LIGHT IN REACH, WILL MONITOR ACCORDINGLY
[2019-03-17] MEDS: AMLODIPINE BESYLATE 10 MG TABLET PO SCH (08:35)
[2019-03-17] MEDS: Z GUARD REMEDY 2 OZ OINT TP SCH ×3 (08:37→16:15)
--- NOTE | 2019-03-17 09:30 | NUR ---
RN NOTE LEFT THIGH WOUND DRESSING CHANGED AT THIS TIME AND WRAPPED WITH KERLIX, WILL CONTINUE TO MONITOR
[2019-03-17 09:35] LABS: CHOLESTEROL 97 mg/dL (<200); HDL CHOLESTEROL 55 mg/dL (40-60); LDL 30 mg/dL (0-99); THYROID STIMULATING HORMONE 1.848 uIU/mL (0.358-3.74); TRIGLYCERIDES 76 mg/dL (30-150)
--- NOTE | 2019-03-17 13:59 | NUR ---
RN NOTE LEFT THIGH DRESSING ASSESSED AGAIN AT THIS TIME AND MINIMAL BLEEDING NOTED, WILL CONTINUE TO MONITOR
[2019-03-17 16:00] VITALS: BP 162/67
--- NOTE | 2019-03-17 18:04 | NUR ---
RN CLOSING NOTE PT IN BED AT LOWEST AND LOCKED POSITION WITH SIDE RAILS UPX2, A/O X4, BREATHING EVEN AND UNLABORED WITH NO DISTRESS OR PAIN AT THIS TIME, IV IS PATENT AND INTACT, DRESSING INTACT WITH NO BLEEDING NOTED OF THIS TIME, SAFETY PRECAUTIONS IN PLACE, CALL LIGHT IN REACH, ALL NEEDS ATTENDED TO, WILL ENDORSE TO NIGHT RN FOR YANETH.
[2019-03-17 20:00] VITALS: BP 149/62
[2019-03-17] MEDS: oxyCODONE/APAP (5/325 MG) 1 UDTAB TABLET PO PRN (20:41)
[2019-03-18] MEDS: FUROSEMIDE 40 MG/4 ML VIAL IV SCH ×4 (00:23→17:18)
[2019-03-18 06:33] LABS: BASOPHILS # (AUTO) 0.1 /CMM (0.0-0.2); BASOPHILS % (AUTO) 1.1 % (0.0-2.0); EOSINOPHILS % (AUTO) 3.1 % (0.0-6.0); HEMATOCRIT 29 % (33-45); HEMOGLOBIN 9.1 g/dL (11.5-14.8); LYMPHOCYTES # (AUTO) 1.6 /CMM (0.8-4.8); LYMPHOCYTES % (AUTO) 14.9 % (20.0-44.0); MEAN CORPUSCULAR HGB CONC 32 g/dl (31.0-36.0); MEAN CORPUSCULAR VOLUME 81 fL (82-100); MONOCYTES % (AUTO) 9.9 % (2.0-12.0); NEUTROPHILS # (AUTO) 7.4 /CMM (1.8-8.9); PLATELET COUNT (AUTO) 771 /CMM (150-450); RED BLOOD CELL COUNT(AUTO) 3.55 MIL/uL (4.0-5.2); WHITE BLOOD COUNT (AUTO) 10.4 K/uL (4.3-11.0)
--- NOTE | 2019-03-18 06:33 | NUR ---
MS RN NOTES AWAKE & RESPONSIVE. NOT IN ANY DISTRESS. NO SOB NOTED. DENIES ANY PAIN OR DISCOMFORT AT THIS TIME. WITH IV-HL PATENT & INTACT. AM CARE DONE. MONITORED ACCORDINGLY. CALL LIGHT WITHIN REACH. BED IN LOWEST POSITION. SR UP X 3 WITH BED ALARM ON FOR SAFETY. WILL ENDORSE TO NEXT SHIFT.
[2019-03-18 07:01] LABS: ALANINE AMINOTRANSFERASE 11 U/L (12-78); ALBUMIN 2.6 g/dL (3.4-5.0); ALKALINE PHOSPHATASE 81 U/L (46-116); ASPARTATE AMINOTRANSFERASE 15 U/L (15-37); CALCIUM, SERUM 9.4 mg/dL (8.5-10.1); CARBON DIOXIDE 28 mmol/L (21-32); CHLORIDE 102 mmol/L (98-107); CREATININE 1.3 mg/dL (0.6-1.3); GLUCOSE 116 mg/dL (74-106); MAGNESIUM 1.5 mg/dL (1.8-2.4); PHOSPHORUS 3.7 mg/dL (2.5-4.9); SODIUM SERUM 137 mmol/L (136-145); TOTAL PROTEIN, SERUM 6.8 g/dL (6.4-8.2); UREA NITROGEN, BLOOD 22 mg/dL (7-18)
[2019-03-18 07:52] LABS: BILIRUBIN,TOTAL 0.3 mg/dL (0.2-1.0)
[2019-03-18 08:00] VITALS: BP_SYST 104; BP_SYST 169; BP_DIAS 58; BP_DIAS 91
[2019-03-18] MEDS: AMLODIPINE BESYLATE 10 MG TABLET PO SCH (09:24)
[2019-03-18] MEDS: Z GUARD REMEDY 2 OZ OINT TP SCH ×3 (09:25→16:32)
[2019-03-18] MEDS: Magnesium 1GM/D5W 100ML PREMIX 100 ML IV SCH ×2 (10:22→11:39)
[2019-03-18] MEDS: hydrALAZINE HCL 50 MG TABLET PO SCH ×2 (12:37→16:31)
--- NOTE | 2019-03-18 13:40 | NUR ---
Per dr. Dong wean off patient from O2 gradually
[2019-03-18 16:00] VITALS: BP 149/52
--- NOTE | 2019-03-18 18:42 | NUR ---
Patient resting in bed , a/o x4 . Breathing even and unlabored on O2 0.5l via nasal canula. All needs attended. IV line remains intact and patent . Safety precautions in place, call light within reach
[2019-03-18 20:00] VITALS: BP 140/70
[2019-03-18] MEDS: oxyCODONE/APAP (5/325 MG) 1 UDTAB TABLET PO PRN (20:35)
[2019-03-19] MEDS: FUROSEMIDE 40 MG/4 ML VIAL IV SCH ×4 (00:32→11:27)
--- NOTE | 2019-03-19 06:00 | NUR ---
MS RN NOTES PT REFUSED TO HAVE HER LASIX. EXPLAINED TO PT IMPORTANCE OF MEDICATIONS IN HER POC BUT PT STILL REFUSED. PT STATES "I'M GOING HOME TODAY SO I DON'T WANT IT FOR NOW."
[2019-03-19 07:54] VITALS: BP 163/66
[2019-03-19 08:00] VITALS: BP 163/66
[2019-03-19 08:29] LABS: BASOPHILS # (AUTO) 0.1 /CMM (0.0-0.2); BASOPHILS % (AUTO) 0.7 % (0.0-2.0); EOSINOPHILS % (AUTO) 1.5 % (0.0-6.0); HEMATOCRIT 31 % (33-45); HEMOGLOBIN 9.5 g/dL (11.5-14.8); LYMPHOCYTES % (AUTO) 8.4 % (20.0-44.0); MEAN CORPUSCULAR HGB CONC 31 g/dl (31.0-36.0); MEAN CORPUSCULAR VOLUME 81 fL (82-100); MONOCYTES % (AUTO) 8.4 % (2.0-12.0); NEUTROPHILS # (AUTO) 10.1 /CMM (1.8-8.9); PLATELET COUNT (AUTO) 814 /CMM (150-450); RED BLOOD CELL COUNT(AUTO) 3.85 MIL/uL (4.0-5.2); WHITE BLOOD COUNT (AUTO) 12.4 K/uL (4.3-11.0)
[2019-03-19] MEDS: AMLODIPINE BESYLATE 10 MG TABLET PO SCH (08:59)
[2019-03-19] MEDS: hydrALAZINE HCL 50 MG TABLET PO SCH ×2 (08:59→13:49)
--- NOTE | 2019-03-19 09:00 | NUR ---
Patient complain of constipation . Will administrate milk of magnesia .
[2019-03-19] MEDS: Z GUARD REMEDY 2 OZ OINT TP SCH (09:01)
[2019-03-19] MEDS ORDERED: MAGNESIUM HYDROXIDE 30 ML UDC PO PRN (11:30)
[2019-03-19 13:49] VITALS: BP 156/67
--- NOTE | 2019-03-19 16:30 | NUR ---
Patient had large BM with abdominal pain. Patient cleaned and repositioned. Pain decreased
[2019-03-19] MEDS: oxyCODONE/APAP (5/325 MG) 1 UDTAB TABLET PO PRN (16:50)
--- NOTE | 2019-03-19 17:00 | NUR ---
patient cleared for d/c by MD , patient awake alert and orientedx4, breathing unlabored and even on room air with saturation 94%. VS are stable and within baseline. Patient medicated before transfer due to back pain 07/27. All needs attended. IV line removed, ID wrist band removed. Patient educated and d/c instructions provided. Patient verbalized understanding. Patient has redness on upper back , sacral aria and b/l lower and upper extremities discoloration. Patient refused to take D/C pictures; education provided and patient still strongly refusing ,stated " I'm very tired, I cannot do it". Patient picked up by ambulance for transfer back to Assisted Living facility
== END 2019-03-19 17:00 | disposition home health service (06) | DRG 291 ==
LOC: ER 15:03 → TELE 17:42 → MED 03-17 09:18
PROVIDERS: ADMIT Internal Medicine; ATTEND Internal Medicine
DX: I13.0 Hypertensive heart and chronic kidney disease with heart failure and stage 1 through stage 4 chronic kidney disease, or unspecified chronic kidney disease (principal); J96.21 Acute and chronic respiratory failure with hypoxia; N17.0 Acute kidney failure with tubular necrosis; I50.33 Acute on chronic diastolic (congestive) heart failure; D68.59 Other primary thrombophilia; S05.92XA Unspecified injury of left eye and orbit, initial encounter; I25.10 Atherosclerotic heart disease of native coronary artery without angina pectoris; I48.0 Paroxysmal atrial fibrillation; J44.9 Chronic obstructive pulmonary disease, unspecified; I27.20 Pulmonary hypertension, unspecified; D63.8 Anemia in other chronic diseases classified elsewhere; N18.9 Chronic kidney disease, unspecified; E11.22 Type 2 diabetes mellitus with diabetic chronic kidney disease; Z79.01 Long term (current) use of anticoagulants; E78.5 Hyperlipidemia, unspecified; Z87.01 Personal history of pneumonia (recurrent); D47.3 Essential (hemorrhagic) thrombocythemia; X58.XXXA Exposure to other specified factors, initial encounter; Y92.89 Other specified places as the place of occurrence of the external cause; G89.29 Other chronic pain; M54.5 Low back pain
CPT/HCPCS: 36415; 71045-TC; 80048-TC; 80053-TC; 80061-TC; 80076-TC; 83605-TC; 83735-TC; 83880; 84100-TC; 84443-TC; 84484-TC; 85025-TC; 85730-TC; 87040-TC; 87081-TC; A6253; G0378; J1940; J3475; J7050

== ENCOUNTER 2019-04-28 16:17 | Inpatient (IN) | payer MEDICARE, BC ==
[~2019-04-28] VITALS: Ht 160 cm; Wt 93.0 kg
[~2019-04-28 16:17] MED LIST changes: -ASCO500T9 PO; +AZIT250T13 PO; +BENZ1LOZ58 MM; +CALC-534 PO; +LOPE2CAP40 PO; -LOSA25TA27 PO; -METO50TA16 PO; +MULT1TAB73 PO; -NYST15OI TP; -ZINC1CAP2 PO
--- NOTE | 2019-04-28 16:30 | NUR ---
Patient came to [facility] from [facility] c/C SOB patient O2 @ facility
[2019-04-28] MEDS ORDERED: FUROSEMIDE 40 MG/4 ML VIAL IV ONE (17:00)
[2019-04-28 17:03] LABS: BASOPHILS # (AUTO) 0.1 /CMM (0.0-0.2); BASOPHILS % (AUTO) 0.9 % (0.0-2.0); HEMATOCRIT 30 % (33-45); HEMOGLOBIN 9.3 g/dL (11.5-14.8); LYMPHOCYTES % (AUTO) 9.7 % (20.0-44.0); MEAN CORPUSCULAR HGB CONC 31 g/dl (31.0-36.0); MEAN CORPUSCULAR VOLUME 83 fL (82-100); MONOCYTES # (AUTO) 0.8 /CMM (0.1-1.30); MONOCYTES % (AUTO) 7.6 % (2.0-12.0); NEUTROPHILS # (AUTO) 8.1 /CMM (1.8-8.9); NEUTROPHILS % (AUTO) 80.8 % (43.0-81.0); PLATELET COUNT (AUTO) 664 /CMM (150-450); RED BLOOD CELL COUNT(AUTO) 3.61 MIL/uL (4.0-5.2)
[2019-04-28 17:13] LABS: CALCIUM, SERUM 9.5 mg/dL (8.5-10.1); CARBON DIOXIDE 32 mmol/L (21-32); CHLORIDE 97 mmol/L (98-107); GLUCOSE 183 mg/dL (74-106); POTASSIUM 4.9 mmol/L (3.5-5.1); SODIUM SERUM 133 mmol/L (136-145); UREA NITROGEN, BLOOD 42 mg/dL (7-18)
[2019-04-28 17:25] LABS: ALANINE AMINOTRANSFERASE 8 U/L (12-78); ALBUMIN 3.2 g/dL (3.4-5.0); ALKALINE PHOSPHATASE 86 U/L (46-116); ASPARTATE AMINOTRANSFERASE 17 U/L (15-37); B-TYPE NATRIURETIC PEPTIDE 14823 PG/ML (0-125); BILIRUBIN,DIRECT 0.1 mg/dL (0.0-0.2); BILIRUBIN,TOTAL 0.4 mg/dL (0.2-1.0); TOTAL PROTEIN, SERUM 7.4 g/dL (6.4-8.2)
[2019-04-28] MEDS ORDERED: FUROSEMIDE 40 MG/4 ML VIAL ONE (17:46)
[2019-04-28] MEDS ORDERED: MAGN400T26 PO (18:10)
[2019-04-28] MEDS ORDERED: AMLO2.5T4 PO (18:10)
[2019-04-28] MEDS ORDERED: VALS80TA2 PO (18:10)
[2019-04-28] MEDS ORDERED: NEOM1PAC2 TP (18:10)
[2019-04-28] MEDS ORDERED: HYDR-4077 PO (18:10)
[2019-04-28] MEDS ORDERED: ACID1TAB14 PO (18:10)
[2019-04-28] MEDS ORDERED: METO25TA20 PO (18:10)
--- NOTE | 2019-04-28 18:30 | NUR ---
Patient awake alert non distress made aware paln of care noted she has bilateral edema lower ext . elevated
--- NOTE | 2019-04-28 19:35 | NUR ---
PAGED [facility].
--- NOTE | 2019-04-28 19:37 | NUR ---
CALLED NURSING SUP FOR TELE BED.
--- NOTE | 2019-04-28 20:29 | NUR ---
REPORT CALLED TO [facility] SU[facility] ENGINEERCIERRA FRANZ. WILL TRANSPORT PT VIA ACLS PROTOCOL.
[2019-04-28 20:55] VITALS: BP 153/56
--- NOTE | 2019-04-28 20:55 | NUR ---
LEGAL SECRETARY RECEPTIONIST ADMITTING NOTES RECEIVED PT IN FROM ER VIA [facility] IN STABLE CONDITION. PT A/O X3 AND ABLE TO MAKE NEEDS KNOWN. RESPIRATIONS EVEN AND UNLABORED WITH NO S/S OF ACUTE DISTRESS OR SOB NOTED. PT ON 4L O2 VIA NC SATING 95%. PT NOTED WITH LHAND #22G PATENT AND INTACT AND SL. ORIENTED PT TO UNIT AND STAFF. SAFETY MEASURES IN PLACE WITH BED IN LOWEST LOCKED POSITION WITH SIDE RAILS UP X2. CALL LIGHT WITHIN REACH. WILL CONTINUE TO MONITOR.
[2019-04-28] MEDS ORDERED: FUROSEMIDE 40 MG/4 ML VIAL IV SCH (21:00)
[2019-04-28] MEDS ORDERED: CLONIDINE HCL 0.1 MG TABLET PO PRN (21:00)
[2019-04-28] MEDS ORDERED: POTASSIUM CHLORIDE 10 MEQ TABLET.SA PO SCH (21:00)
[2019-04-28] MEDS ORDERED: ZOLPIDEM TARTRATE 5 MG TABLET PO PRN (21:00)
[2019-04-28] MEDS ORDERED: Z GUARD REMEDY 2 OZ OINT TP PRN (21:00)
[2019-04-28] MEDS ORDERED: DEXTROSE 50%-WATER 50 ML DISP.SYRIN IV PRN (21:00)
[2019-04-28] MEDS ORDERED: ACETAMINOPHEN 325 MG TABLET PO PRN ×2 (21:00)
[2019-04-28] MEDS ORDERED: MAG HYDROX/AL HYDROX/SIMETH 30 ML UDC PO PRN (21:00)
[2019-04-28] MEDS ORDERED: LOPERAMIDE HCL (2 MG CAP) 2 MG CAPSULE PO PRN (21:00)
[2019-04-28] MEDS ORDERED: TRAMADOL HCL 50 MG TABLET PO PRN (21:00)
[2019-04-28] MEDS ORDERED: ONDANSETRON HCL/PF 4 MG/2 ML VIAL IVP PRN (21:00)
[2019-04-28] MEDS ORDERED: Medication Not On Formulary EA (Ondansetron Hcl (Zofran) 4 MG) PO PRN (21:00)
[2019-04-28] MEDS ORDERED: MAGNESIUM HYDROXIDE 30 ML UDC PO PRN (21:00)
[2019-04-28] MEDS ORDERED: APIXABAN 5 MG TABLET PO SCH (21:30)
[2019-04-28] MEDS ORDERED: METOCLOPRAMIDE HCL 10 MG TABLET PO PRN (21:30)
--- NOTE | 2019-04-28 21:30 | NUR ---
HOT TAR ROOFER NOTES PT REFUSED BODY ASSESSMENT AND PHOTOS. PT STATES "THEY CAN DO THAT AFTER BREAKFAST, I JUST WANT TO SLEEP, IM TIRED." WILL CONTINUE TO MONITOR.
[2019-04-28] MEDS: ATORVASTATIN 10 MG TABLET PO SCH (21:59)
[2019-04-28] MEDS: BACI/NEOM/POLY B OINT PKT 1 UDPKT PACKET TP SCH (21:59)
[2019-04-28] MEDS: METOPROLOL TARTRATE 25 MG TABLET PO SCH (22:01)
[2019-04-28] MEDS: oxyCODONE/APAP (5/325 MG) 1 UDTAB TABLET PO PRN (22:02)
[2019-04-28] MEDS: BLOOD SUGAR DIAGNOSTIC 1 EACH STRIP VI SCH (22:43)
[2019-04-29] VITALS: BP 152/49
[2019-04-29] MEDS ORDERED: ALBUTEROL FS 2.5 MG/3 ML VIAL.NEB NEB PRN (01:30)
[2019-04-29 04:00] VITALS: BP 159/50
--- NOTE | 2019-04-29 05:43 | NUR ---
RESEARCH INTERVIEWER NOTES PT REFUSED MORNING BLOOD DRAW. WILL CONTINUE TO MONITOR.
[2019-04-29] MEDS: BLOOD SUGAR DIAGNOSTIC 1 EACH STRIP VI SCH ×4 (06:53→23:00)
--- NOTE | 2019-04-29 07:35 | NUR ---
OPHTHALMIC MEDICAL ASSISTANT NOTES PT IN AND AWAKE. PT A/O X3 AND ABLE TO MAKE NEEDS KNOWN. RESPIRATIONS EVEN AND UNLABORED WITH NO S/S OF ACUTE DISTRESS OR SOB NOTED THROUGHOUT SHIFT. PT ON 4L O2 VIA NC SATING 95%. PT NOTED WITH KATIE #22G PATENT AND INTACT AND SL. SAFETY MEASURES IN PLACE WITH BED IN LOWEST LOCKED POSITION WITH SIDE RAILS UP X2. CALL LIGHT WITHIN REACH. WILL ENDORSE TO ONCOMING NURSE FOR YANETH.
[2019-04-29 08:00] VITALS: BP 158/59
[2019-04-29] MEDS ORDERED: VALSARTAN 80 MG TABLET PO SCH (09:00)
[2019-04-29] MEDS ORDERED: AMLODIPINE BESYLATE 2.5 MG TABLET PO SCH (09:00)
[2019-04-29] MEDS: MULTIVITAMINS,THERAGRAN 1 UDTAB TABLET PO SCH (09:05)
[2019-04-29] MEDS: FOLIC ACID 1 MG TABLET PO SCH (09:06)
[2019-04-29] MEDS: ASPIRIN EC 81 MG TABLET.DR PO SCH (09:06)
[2019-04-29] MEDS: BENZONATATE 100 MG CAPSULE PO SCH ×3 (09:06→17:05)
[2019-04-29] MEDS: ACIDOPHILUS/BULGARICUS 1 EACH TAB.CHEW PO SCH (09:06)
[2019-04-29] MEDS: MAGNESIUM OXIDE 400 MG TABLET PO SCH ×2 (09:06→17:04)
[2019-04-29] MEDS: PANTOPRAZOLE 40 MG TABLET.DR PO SCH (09:06)
[2019-04-29] MEDS: METOPROLOL TARTRATE 25 MG TABLET PO SCH ×2 (09:06→21:58)
[2019-04-29] MEDS: FUROSEMIDE 100 MG/10 ML VIAL IV SCH ×3 (09:07→17:09)
[2019-04-29] MEDS: hydrALAZINE HCL 50 MG TABLET PO SCH ×3 (09:07→17:05)
[2019-04-29] MEDS: APIXABAN 2.5 MG TABLET PO SCH ×2 (09:17→17:20)
[2019-04-29 09:52] LABS: ABG BASE EXCESS 1.6 mmol/L; ABG OXYGEN SATURATION 94.6 % (92.0-98.5); ABG PCO2 56.8 mmHg (35.0-45.0); ABG PH 7.318 (7.350-7.450); ABG PO2 74.3 mmHg (75.0-100.0); AaDO2 116.5 mmHg; COHb 0.3 % (0.5-1.5); MetHb 0.1 % (0.0-1.5); O2Hb 94.2 % (94.0-97.0); SITE, ABG Right Brachial
[2019-04-29] MEDS ORDERED: methylPREDNISolone SOD SUCC 125 MG/2ML VIAL IV SCH (10:00)
[2019-04-29] MEDS: IPRATROPIUM NEB FS 0.5 MG/2.5 ML AMPUL.NEB NEB SCH ×3 (10:00→19:30)
[2019-04-29] MEDS: ALBUTEROL FS 2.5 MG/3 ML VIAL.NEB NEB SCH ×3 (10:00→19:30)
[2019-04-29] MEDS: Z GUARD REMEDY 2 OZ OINT TP SCH ×3 (10:31→17:23)
--- NOTE | 2019-04-29 12:00 | NUR ---
Patient refused Insulin administration , recent BS is 176. Education provided; patient states she will take it if BS up to 200.
[2019-04-29] MEDS: INSULIN REGULAR, HUMAN 100 UNIT/ML 3 ML VIAL SQ PRN ×2 (12:10→17:27)
[2019-04-29] MEDS: oxyCODONE/APAP (5/325 MG) 1 UDTAB TABLET PO PRN ×2 (12:52→18:50)
[2019-04-29 16:13] VITALS: BP 162/60
--- NOTE | 2019-04-29 17:30 | NUR ---
Patient refused Insulin adm. with BS level 187. PAtient educated on risks and benefits ; patient still refusing.
--- NOTE | 2019-04-29 18:20 | NUR ---
Patient complains of pain at IV site. NOted with infiltrated IV and removed.
--- NOTE | 2019-04-29 18:35 | NUR ---
Attempted to insert a new IV line with no success. Patient refused another attempt
--- NOTE | 2019-04-29 18:45 | NUR ---
Patient resting in bed , VS are stable , no SOB noted, complains of generalized pain.PRN pain medication administrated. All needs attended , wound care provided. Patient kept clean and dry. Patient received 3 dosed Lasix via IV. Safety precautions in place , call light within reach. Will endorse to next shift for YANETH
[2019-04-29 20:24] VITALS: BP 141/45
[2019-04-29] MEDS: BACI/NEOM/POLY B OINT PKT 1 UDPKT PACKET TP SCH (21:57)
[2019-04-29] MEDS: ATORVASTATIN 10 MG TABLET PO SCH (21:57)
--- NOTE | 2019-04-29 22:19 | NUR ---
MS RN NOTES RECEIVED PT IN BED AND AWAKE. PT A/O X3 AND ABLE TO MAKE NEEDS KNOWN. RESPIRATIONS EVEN AND UNLABORED WITH NO S/S OF ACUTE DISTRESS OR SOB NOTED. PT ON 4L O2 VIA NC SATING 95%. PT NOTED WITH NO IV ACCESS. SAFETY MEASURES IN PLACE WITH BED IN LOWEST LOCKED POSITION WITH SIDE RAILS UP X2. CALL LIGHT WITHIN REACH. WILL CONTINUE TO MONITOR.
--- NOTE | 2019-04-29 22:40 | NUR ---
Met with patient at bedside, she is alert and pleasant. [phone]. States she walks with a walker and most of the time she uses a wheelchair for mobility. She has home o2, walker and wheelchair. She is currently on service with [facility] [phone]. Pcp is Dr. Dong. Patient want to return to [facility] once discharge. Addendum: 04/29/19 at 2240 by ALTON FRANCO RN Amended: Links added.
[2019-04-29] MEDS: *INSULIN REGULAR(HUMULIN R)HUM 100 UNIT/ML VIAL SQ PRN (23:01)
[2019-04-30] MEDS: ALBUTEROL FS 2.5 MG/3 ML VIAL.NEB NEB SCH ×4 (01:20→19:30)
[2019-04-30] MEDS: IPRATROPIUM NEB FS 0.5 MG/2.5 ML AMPUL.NEB NEB SCH ×4 (01:20→19:30)
--- NOTE | 2019-04-30 05:35 | NUR ---
RT NOTE PT REFUSED EKG AT THIS TIME. RN MRAIA M NOTIFIED AND IS AWARE. WILL ENDORSE TO NEXT SHIFT.
[2019-04-30] MEDS: BLOOD SUGAR DIAGNOSTIC 1 EACH STRIP VI SCH ×4 (06:58→22:22)
[2019-04-30] MEDS: INSULIN REGULAR, HUMAN 100 UNIT/ML 3 ML VIAL SQ PRN ×2 (07:03→17:09)
--- NOTE | 2019-04-30 07:03 | NUR ---
MS RN NOTES PT REFUSED SLIDING SCALE COVERAGE. PT STATES SHE ONLY TAKES IF GLUCOSE ABOVE 200. WILL CONTINUE TO MONITOR.
--- NOTE | 2019-04-30 07:07 | NUR ---
MS RN NOTES PT IN AND AWAKE. PT A/O X3 AND ABLE TO MAKE NEEDS KNOWN. RESPIRATIONS EVEN AND UNLABORED WITH NO S/S OF ACUTE DISTRESS OR SOB NOTED THROUGHOUT SHIFT. PT ON 3L O2 VIA. SAFETY MEASURES IN PLACE WITH BED IN LOWEST LOCKED POSITION WITH SIDE RAILS UP X2. CALL LIGHT WITHIN REACH. WILL ENDORSE TO ONCOMING NURSE FOR YANETH.
--- NOTE | 2019-04-30 07:07 | NUR ---
MS RN NOTES PT REFUSED MORNING LABS AND EKG. WILL CONTINUE TO MONITOR.
[2019-04-30 07:53] VITALS: BP 169/51
[2019-04-30 08:00] VITALS: BP 169/51
--- NOTE | 2019-04-30 08:00 | NUR ---
Per Dr. Hodge patient a candidate for midline. Dr. Post inform. Awaiting for midline insertion .
--- NOTE | 2019-04-30 08:30 | NUR ---
PT REFUSED MORNING LABS AGAIN
[2019-04-30] MEDS: hydrALAZINE HCL 50 MG TABLET PO SCH ×3 (09:09→17:17)
[2019-04-30] MEDS: MULTIVITAMINS,THERAGRAN 1 UDTAB TABLET PO SCH (09:09)
[2019-04-30] MEDS: BENZONATATE 100 MG CAPSULE PO SCH ×3 (09:09→17:16)
[2019-04-30] MEDS: MAGNESIUM OXIDE 400 MG TABLET PO SCH ×2 (09:09→17:17)
[2019-04-30] MEDS: METOPROLOL TARTRATE 25 MG TABLET PO SCH ×2 (09:09→21:25)
[2019-04-30] MEDS: ACIDOPHILUS/BULGARICUS 1 EACH TAB.CHEW PO SCH (09:10)
[2019-04-30] MEDS: PANTOPRAZOLE 40 MG TABLET.DR PO SCH (09:10)
[2019-04-30] MEDS: FOLIC ACID 1 MG TABLET PO SCH (09:10)
[2019-04-30] MEDS: ASPIRIN EC 81 MG TABLET.DR PO SCH (09:10)
[2019-04-30] MEDS: AMLODIPINE BESYLATE 2.5 MG TABLET PO SCH (09:10)
[2019-04-30] MEDS: APIXABAN 2.5 MG TABLET PO SCH ×2 (09:17→17:21)
[2019-04-30] MEDS: oxyCODONE/APAP (5/325 MG) 1 UDTAB TABLET PO PRN ×2 (09:19→18:41)
[2019-04-30] MEDS: MENTHOL/CETYLPYRD (CEPACOL) 1 LOZ LOZENGE PO PRN (09:36)
[2019-04-30] MEDS: SILVER SULFADIAZINE 50 GM JAR TP SCH (09:36)
[2019-04-30] MEDS: Z GUARD REMEDY 2 OZ OINT TP SCH ×3 (09:37→17:22)
[2019-04-30] MEDS ORDERED: predniSONE 50 MG TABLET PO SCH (10:30)
--- NOTE | 2019-04-30 10:30 | NUR ---
WOUND CARE CONSULT: PT REFUSED SKIN ASSESSMENT AT THIS TIME. PT FOLLOWED BY DPM FOR LOWER LEG WOUND. DEFER TO DPM FOR WOUND TREATMENT PLAN. DISCUSSED SKIN PROTECTION WITH NURSING STAFF. WILL SEE PRN. PER NURSING STAFF, PT ABLE TO ASSIST WITH TURNING AND REPOSITIONING IN BED. CURRENT BRADY SCORE IS 16. Addendum: 04/30/19 at 1034 by DEMETRICE DUPREE WNDNU [facility]
--- NOTE | 2019-04-30 10:49 | NUR ---
RT NOTE: PT REFUSED ABG EVEN AFTER EXPLAINING BENEFITS OF TEST RESULTS. PT STILL REFUSED. MD MEADE NOTIFIED AND AWARE. RN AWARE. NO RESPIRATORY DISTRESS NOTED.
[2019-04-30] MEDS: predniSONE 20 MG TABLET PO SCH (11:15)
--- NOTE | 2019-04-30 11:30 | NUR ---
Patient refused accu-check. Education provided; patient still refusing.
[2019-04-30] MEDS: FEBUXOSTAT 40 MG PO SCH (12:31)
[2019-04-30] MEDS ORDERED: EPOETIN ALFA (10,000 UNIT) 10,000 UNIT/ML VIAL SQ SCH (15:00)
[2019-04-30 16:00] VITALS: BP 151/49
--- NOTE | 2019-04-30 17:22 | NUR ---
patient noted with mood change; became upset telling , " I haven't see by doctors today , nothing was done for me today."
--- NOTE | 2019-04-30 17:48 | NUR ---
Midline to the right upper arm , flushing well.
--- NOTE | 2019-04-30 18:48 | NUR ---
Patient resting in bed , VS are stable , no SOB noted, complains of generalized pain.PRN pain medication administrated. All needs attended , wound care provided. Patient kept clean and dry. FRANCISCO midline , intact and patent. Safety precautions in place , call light within reach. Will endorse to next shift for YANETH
--- NOTE | 2019-04-30 19:46 | NUR ---
RN NOTES RECEIVED PATIENT AWAKE, ALERT ORIENTED X3-4. NO SIGNS OF ACUTE DISTRESS, SAFETY MEASURES IN PLACE, ASPIRATION PRECAUTION EMPHASIZED, CALL LIGHT WITHIN EASY REACH. DENIES ANY PAIN OR DISCOMFORT, IV MIDLINE ACCESS ON HER RIGHT UPPER ARM INTACT AND PATENT. REPOSITIONED FOR COMFORT, ALL NEEDS ANTICIPATED, WILL CONTINUE TO MONITOR ACCORDINGLY.
[2019-04-30 20:00] VITALS: BP 137/62
[2019-04-30] MEDS: ATORVASTATIN 10 MG TABLET PO SCH (21:26)
[2019-04-30] MEDS: *INSULIN REGULAR(HUMULIN R)HUM 100 UNIT/ML VIAL SQ PRN (22:34)
[2019-04-30] MEDS: BACI/NEOM/POLY B OINT PKT 1 UDPKT PACKET TP SCH (22:53)
[2019-05-01] MEDS: ALBUTEROL FS 2.5 MG/3 ML VIAL.NEB NEB SCH ×4 (01:27→19:30)
[2019-05-01] MEDS: IPRATROPIUM NEB FS 0.5 MG/2.5 ML AMPUL.NEB NEB SCH ×4 (01:27→19:30)
--- NOTE | 2019-05-01 06:40 | NUR ---
RN NOTES ABLE TO REST AND SLEPT WITH LONG INTERVALS, PATIENT AWAKE, ALERT ORIENTED X3-4. NO SIGNS OF ACUTE DISTRESS, SAFETY MEASURES IN PLACE, ASPIRATION PRECAUTION EMPHASIZED, CALL LIGHT WITHIN EASY REACH. DENIES ANY PAIN OR DISCOMFORT, IV MIDLINE ACCESS ON HER RIGHT UPPER ARM INTACT AND PATENT. REPOSITIONED FOR COMFORT, ALL NEEDS ANTICIPATED, WILL ENDORSE TO AM NURSE FOR CONTINUITY OF CARE.
[2019-05-01] MEDS: INSULIN REGULAR, HUMAN 100 UNIT/ML 3 ML VIAL SQ PRN ×3 (06:53→17:21)
[2019-05-01 06:57] LABS: BASOPHILS % (AUTO) 0.1 % (0.0-2.0); HEMATOCRIT 29 % (33-45); HEMOGLOBIN 9.1 g/dL (11.5-14.8); LYMPHOCYTES # (AUTO) 0.8 /CMM (0.8-4.8); LYMPHOCYTES % (AUTO) 13.7 % (20.0-44.0); MEAN CORPUSCULAR HGB CONC 32 g/dl (31.0-36.0); MEAN CORPUSCULAR VOLUME 81 fL (82-100); MONOCYTES # (AUTO) 0.5 /CMM (0.1-1.30); MONOCYTES % (AUTO) 7.6 % (2.0-12.0); NEUTROPHILS # (AUTO) 4.7 /CMM (1.8-8.9); NEUTROPHILS % (AUTO) 78.6 % (43.0-81.0); PLATELET COUNT (AUTO) 773 /CMM (150-450); RED BLOOD CELL COUNT(AUTO) 3.54 MIL/uL (4.0-5.2)
[2019-05-01 07:14] LABS: ALANINE AMINOTRANSFERASE 8 U/L (12-78); ALBUMIN 2.9 g/dL (3.4-5.0); ALKALINE PHOSPHATASE 68 U/L (46-116); ASPARTATE AMINOTRANSFERASE 15 U/L (15-37); BILIRUBIN,TOTAL 0.2 mg/dL (0.2-1.0); CALCIUM, SERUM 9.2 mg/dL (8.5-10.1); CARBON DIOXIDE 30 mmol/L (21-32); CHLORIDE 96 mmol/L (98-107); CREATININE 2.3 mg/dL (0.6-1.3); GLUCOSE 193 mg/dL (74-106); MAGNESIUM 2.7 mg/dL (1.8-2.4); PHOSPHORUS 4.6 mg/dL (2.5-4.9); POTASSIUM 5.5 mmol/L (3.5-5.1); SODIUM SERUM 130 mmol/L (136-145); TOTAL PROTEIN, SERUM 6.9 g/dL (6.4-8.2); UREA NITROGEN, BLOOD 67 mg/dL (7-18)
--- NOTE | 2019-05-01 07:43 | NUR ---
MS/RN OPENING NOTE Patient is resting in bed, A/O x3, showing no signs of acute distress or SOB, stable on 2L NC. Midline in the FRANCISCO is clean and intact. Dressing on the left lower leg is clean and dry. Patient has no complaints at this time. Bed is in lowest position, side rails x3 in upright position, fall, safety and aspiration precautions enforced. Will continue with plan of care.
[2019-05-01] MEDS: BLOOD SUGAR DIAGNOSTIC 1 EACH STRIP VI SCH ×4 (07:54→22:05)
[2019-05-01 08:00] VITALS: BP 158/60
[2019-05-01] MEDS ORDERED: IV NS 0.9% 1,000 ML IV PRN (08:03)
[2019-05-01] MEDS: hydrALAZINE HCL 50 MG TABLET PO SCH ×3 (08:28→16:43)
[2019-05-01] MEDS: ACIDOPHILUS/BULGARICUS 1 EACH TAB.CHEW PO SCH (08:28)
[2019-05-01] MEDS: AMLODIPINE BESYLATE 2.5 MG TABLET PO SCH (08:28)
[2019-05-01] MEDS: ASPIRIN EC 81 MG TABLET.DR PO SCH (08:28)
[2019-05-01] MEDS: FOLIC ACID 1 MG TABLET PO SCH (08:28)
[2019-05-01] MEDS: MULTIVITAMINS,THERAGRAN 1 UDTAB TABLET PO SCH (08:29)
[2019-05-01] MEDS: predniSONE 20 MG TABLET PO SCH (08:29)
[2019-05-01] MEDS: BENZONATATE 100 MG CAPSULE PO SCH ×3 (08:29→16:41)
[2019-05-01] MEDS: PANTOPRAZOLE 40 MG TABLET.DR PO SCH (08:29)
[2019-05-01] MEDS: MAGNESIUM OXIDE 400 MG TABLET PO SCH ×2 (08:29→16:42)
[2019-05-01] MEDS: METOPROLOL TARTRATE 25 MG TABLET PO SCH ×2 (08:29→21:00)
[2019-05-01] MEDS: APIXABAN 2.5 MG TABLET PO SCH ×2 (08:30→16:42)
[2019-05-01] MEDS: Z GUARD REMEDY 2 OZ OINT TP SCH ×3 (08:31→17:22)
[2019-05-01] MEDS: SILVER SULFADIAZINE 50 GM JAR TP SCH (08:32)
[2019-05-01] MEDS: FEBUXOSTAT 40 MG PO SCH (08:32)
[2019-05-01] MEDS: FUROSEMIDE 40 MG/4 ML VIAL IV SCH ×2 (08:53→13:07)
[2019-05-01] MEDS: oxyCODONE/APAP (5/325 MG) 1 UDTAB TABLET PO PRN ×3 (08:53→21:21)
--- NOTE | 2019-05-01 09:00 | NUR ---
MS/RN NOTE Offered Miralax to patient and explained to her that it will assist in bowel movements. Patient refused medication stated its normal for her not to have bowel movements everyday. Offered prune juice, patient refused.
--- NOTE | 2019-05-01 10:00 | NUR ---
MS/RN NOTE Obtained informed consent from patient's son at the bedside for US guided paracentesis. Consent placed in chart.
--- NOTE | 2019-05-01 10:06 | NUR ---
MS/RN NOTE Informed US speedy Prado that patient received 2.5mg Eliquis this AM. She will inform radiologist and I will inform ordering MD.
[2019-05-01] MEDS: METOLAZONE 2.5 MG TABLET PO SCH (10:43)
[2019-05-01] MEDS ORDERED: EPOETIN ALFA (10,000 UNIT) 10,000 UNIT/ML VIAL SQ SCH (15:00)
[2019-05-01 16:00] VITALS: BP 138/55
[2019-05-01 16:35] VITALS: BP 145/49
[2019-05-01] MEDS: EPOETIN ALFA (10,000 UNIT) 10,000 UNIT/ML VIAL SQ SCH (17:20)
--- NOTE | 2019-05-01 19:24 | NUR ---
MS/RN NOTE Eliquis given at 1642 this afternoon. Charge nurse aware. Called US tech 3 times, and left a message. Endorsed to shift stacker RN to hold eliquis.
--- NOTE | 2019-05-01 19:28 | NUR ---
MS/RN CLOSING NOTE Patient is resting in bed, A/O x3, showing no signs of acute distress or SOB, stable on 2L NC. Midline in the FRANCISCO is clean and intact s/l. Dressing on the left lower leg is clean and dry. Patient kept clean and dry throughout shift, all patient needs met, all due meds given. Bed is in lowest position, side rails x3 in upright position, patient is aware of how to call for assistance when needed, fall, safety and aspiration precautions enforced. Will endorse to casino shift manager.
[2019-05-01 20:00] VITALS: BP 142/68
[2019-05-01 20:37] VITALS: BP 142/68
[2019-05-01] MEDS: POLYETHYLENE GLYCOL 3350 17 GM POWD.PACK PO PRN (21:21)
[2019-05-01] MEDS: ATORVASTATIN 10 MG TABLET PO SCH (21:23)
[2019-05-01] MEDS: BACI/NEOM/POLY B OINT PKT 1 UDPKT PACKET TP SCH (21:45)
[2019-05-01] MEDS: *INSULIN REGULAR(HUMULIN R)HUM 100 UNIT/ML VIAL SQ PRN (22:08)
[2019-05-02] MEDS: IPRATROPIUM NEB FS 0.5 MG/2.5 ML AMPUL.NEB NEB SCH ×4 (01:30→19:12)
[2019-05-02] MEDS: ALBUTEROL FS 2.5 MG/3 ML VIAL.NEB NEB SCH ×4 (01:30→19:13)
--- NOTE | 2019-05-02 06:26 | NUR ---
RN NOTES ALL NEEDS ATTENDED AND MET, ABLE TO REST AND SLEPT WITH LONG INTERVALS, PATIENT AWAKE, ALERT ORIENTED X3-4. NO SIGNS OF ACUTE DISTRESS, SAFETY MEASURES IN PLACE, ASPIRATION PRECAUTION EMPHASIZED, CALL LIGHT WITHIN EASY REACH. DENIES ANY PAIN OR DISCOMFORT, IV MIDLINE ACCESS ON HER RIGHT UPPER ARM INTACT AND PATENT. REPOSITIONED FOR COMFORT, ALL NEEDS ANTICIPATED, FOR THORACENTESIS TODAY, WILL ENDORSE TO AM NURSE TO HOLD ELIQUIS, WILL. ENDORSE TO AM NURSE FOR CONTINUITY OF CARE. RESTING COMFORTABLY AT THIS TIME.
[2019-05-02] MEDS: BLOOD SUGAR DIAGNOSTIC 1 EACH STRIP VI SCH ×4 (07:05→21:26)
--- NOTE | 2019-05-02 07:20 | NUR ---
MS/RN OPENING NOTES RECEIVED PATIENT SLEEPING ON BED COMFORTABLY, EASILY AWAKEN WHEN CALLING HER NAME PATIENT IS ALERT ORIENTED X3-4. NO SIGNS OF ACUTE DISTRESS, SAFETY MEASURES IN PLACE, ASPIRATION PRECAUTION EMPHASIZED, CALL LIGHT WITHIN EASY REACH. DENIES ANY PAIN OR DISCOMFORT, IV MIDLINE ACCESS ON HER RIGHT UPPER ARM INTACT AND PATENT. PATIENT IS FOR THORACENTESIS TODAY, WILL CONTINUE TO MONITOR.
[2019-05-02] MEDS: PANTOPRAZOLE 40 MG TABLET.DR PO SCH (07:40)
--- NOTE | 2019-05-02 07:58 | NUR ---
MS/RN NOTES PATIENT IS FOR THORACENTESIS TODAY PER MD DR. STOCK PATIENT CAN STILL EAT BREAKFAST.
--- NOTE | 2019-05-02 08:19 | NUR ---
MS/RN NOTES PATIENT IS FOR THORACENTESIS TODAY PATIENT CAN TAKE ORAL MEDICATION EXCEPT BLOOD THINNER MEDS PER CHARGE NURSE YARON.
[2019-05-02] MEDS: MULTIVITAMINS,THERAGRAN 1 UDTAB TABLET PO SCH (08:30)
[2019-05-02] MEDS: hydrALAZINE HCL 50 MG TABLET PO SCH ×3 (08:30→16:17)
[2019-05-02] MEDS: BENZONATATE 100 MG CAPSULE PO SCH ×3 (08:30→16:17)
[2019-05-02] MEDS: ACIDOPHILUS/BULGARICUS 1 EACH TAB.CHEW PO SCH (08:30)
[2019-05-02] MEDS: predniSONE 20 MG TABLET PO SCH (08:31)
[2019-05-02] MEDS: MAGNESIUM OXIDE 400 MG TABLET PO SCH ×2 (08:31→16:17)
[2019-05-02] MEDS: METOLAZONE 2.5 MG TABLET PO SCH (08:31)
[2019-05-02] MEDS: FOLIC ACID 1 MG TABLET PO SCH (08:31)
[2019-05-02] MEDS: AMLODIPINE BESYLATE 2.5 MG TABLET PO SCH (08:32)
[2019-05-02] MEDS: METOPROLOL TARTRATE 25 MG TABLET PO SCH ×2 (08:32→21:04)
[2019-05-02] MEDS: APIXABAN 2.5 MG TABLET PO SCH ×2 (08:55→16:18)
[2019-05-02] MEDS: ASPIRIN EC 81 MG TABLET.DR PO SCH (08:55)
[2019-05-02] MEDS: Z GUARD REMEDY 2 OZ OINT TP SCH ×3 (08:56→16:18)
[2019-05-02] MEDS: SILVER SULFADIAZINE 50 GM JAR TP SCH (08:56)
[2019-05-02] MEDS: FEBUXOSTAT 40 MG PO SCH (08:57)
[2019-05-02 09:25] LABS: BASOPHILS % (AUTO) 0.1 % (0.0-2.0); HEMATOCRIT 30 % (33-45); HEMOGLOBIN 9.4 g/dL (11.5-14.8); LYMPHOCYTES # (AUTO) 1.3 /CMM (0.8-4.8); LYMPHOCYTES % (AUTO) 15.8 % (20.0-44.0); MEAN CORPUSCULAR HGB CONC 32 g/dl (31.0-36.0); MEAN CORPUSCULAR VOLUME 81 fL (82-100); MONOCYTES # (AUTO) 0.9 /CMM (0.1-1.30); MONOCYTES % (AUTO) 11.8 % (2.0-12.0); NEUTROPHILS # (AUTO) 5.8 /CMM (1.8-8.9); NEUTROPHILS % (AUTO) 72.3 % (43.0-81.0); PLATELET COUNT (AUTO) 830 /CMM (150-450); RED BLOOD CELL COUNT(AUTO) 3.69 MIL/uL (4.0-5.2)
[2019-05-02 09:45] LABS: CALCIUM, SERUM 9.3 mg/dL (8.5-10.1); CARBON DIOXIDE 32 mmol/L (21-32); CHLORIDE 96 mmol/L (98-107); CREATININE 2.3 mg/dL (0.6-1.3); GLUCOSE 184 mg/dL (74-106); MAGNESIUM 2.8 mg/dL (1.8-2.4); PHOSPHORUS 3.9 mg/dL (2.5-4.9); POTASSIUM 5.6 mmol/L (3.5-5.1); SODIUM SERUM 131 mmol/L (136-145); UREA NITROGEN, BLOOD 77 mg/dL (7-18)
[2019-05-02] MEDS: oxyCODONE/APAP (5/325 MG) 1 UDTAB TABLET PO PRN (10:16)
[2019-05-02] MEDS: *INSULIN REGULAR(HUMULIN R)HUM 100 UNIT/ML VIAL SQ PRN ×3 (12:17→22:05)
--- NOTE | 2019-05-02 15:00 | NUR ---
MS/RN NOTES MISCOMMUNICATION BETWEEN LINSEED OIL ORDER FILLER AND BALL TRUING MACHINE OPERATOR REGARDING THE SCHEDULE DATE FOR THORACENTESIS OF THE PATIENT. THORACENTESIS WILL BE DONE TOMORROW PER INTEEMA THE LINSEED OIL ORDER FILLER. MD IS AWARE FOR THE SCHEDULE DATE AND ON HOLD ELIQUIS FOR THE UPCOMING PROCEDURE.
[2019-05-02 15:58] VITALS: BP 161/99
--- NOTE | 2019-05-02 19:05 | NUR ---
MS/RN CLOSING NOTES PATIENT LYING ON THE BED COMFORTABLY. PATIENT IS ALERT AND ORIENTED X3-4. NO APPARENT DISTRESS NOTED. DENIES ANY PAIN OR DISCOMFORT AT THIS TIME. RIGHT UPPER MIDLINE INTACT AND PATENT. SEEN AND EXAMINED BY MD WITH ORDERS MADE AND CARRIED OUT. ALL DUE MEDS WAS GIVEN ORDERED, NO ADVERSE REACTIONS. ALL NEEDS WAS ATTENDED. CHANGED DRESSING WAS DONE. SAFETY PRECAUTION IN PLACED. BED IN LOWEST POSITION SIDE RAILS UP X2. CALL LIGHT WITH IN REACH. FOR THORACENTESES TOMORROW 05/03/19. WILL ENDORSED TO PUMPER GAUGER FOR YANETH.
--- NOTE | 2019-05-02 19:45 | NUR ---
MS/RN OPENING NOTES RECEIVED PATIENT AWAKE ON BED COMFORTABLY, ALERT ORIENTED X3-4. NO SIGNS OF ACUTE DISTRESS, SAFETY MEASURES IN PLACE, ASPIRATION PRECAUTION EMPHASIZED, CALL LIGHT WITHIN EASY REACH. DENIES ANY PAIN OR DISCOMFORT, IV MIDLINE ACCESS ON HER RIGHT UPPER ARM INTACT AND PATENT. ALL NEEDS ANTICIPATED, WILL CONTINUE TO MONITOR ACCORDINGLY.
--- NOTE | 2019-05-02 19:48 | NUR ---
CIERRA WHITFIELD CALLED ME @18:45 ABOUT PROCEDURE. CONSENT WAS NOT SIGNED YESTERDAY BUT IS SIGNED TODAY. PATIENT OFF OF BLOOD THINNER OF YESTERDAY. MISCOMMUNICATION BETWEEN U/S TECHS HAS CAUSED PROCEDURE NOT TO BE DONE EARLIER. I CALLED ON-CALL RADIOLOGIST @19:40, DR. ELIZONDO WHO SAID PROCEDURE SHOULD BE DONE TOMORROW (FRIDAY) MORNING. INFORMED CIERRA VAZ @ EXT. [phone] @19:45 ABOUT INCIDENT.
--- NOTE | 2019-05-02 20:10 | NUR ---
SPOKE TO [employer] FROM FRIDAY AND WAS INFORMED THAT THORACENTESIS NEEDS TO BE DONE ON FRIDAY DUE TO BLOOD THINNER BEING GIVEN FRIDAY MORNING. INFORMED CIERRA VAZ @ EXT. [phone].
--- NOTE | 2019-05-02 20:30 | NUR ---
RN NOTES RECEIVED PHONE CALL FROM [employer], WILL TRY TO SCHEDULE THORACENTESIS TONIGHT.
--- NOTE | 2019-05-02 20:45 | NUR ---
RN NOTES INTEEMA CALLED BACK CONFIRMING THAT THORACENTESIS WILL BE SCHEDULED TOMORROW 05/03/19 IN THE MORNING. INFORMED PATIENT REGARDING PLAN OF CARE.
[2019-05-02 20:46] VITALS: BP 151/61
--- NOTE | 2019-05-02 20:55 | NUR ---
RN NOTES CALLED AND SPOKE WITH PATIENT'S SON WYATT ) INFORMED HIM REGARDING PLAN OF CARE. THORACENTESIS IS SCHEDULED TOMORROW.
[2019-05-02] MEDS: ATORVASTATIN 10 MG TABLET PO SCH (21:04)
[2019-05-02] MEDS: BACI/NEOM/POLY B OINT PKT 1 UDPKT PACKET TP SCH (21:05)
--- NOTE | 2019-05-02 21:08 | NUR ---
RN NOTES SKIN ASSESSMENT DAY. PATIENT REFUSED TO TAKE PICTURE ON THE DRESSING SITE, AT THIS TIME. WILL FOLLOW UP.
[2019-05-03] MEDS: IPRATROPIUM NEB FS 0.5 MG/2.5 ML AMPUL.NEB NEB SCH ×4 (01:30→19:09)
[2019-05-03] MEDS: ALBUTEROL FS 2.5 MG/3 ML VIAL.NEB NEB SCH ×4 (01:30→19:09)
[2019-05-03] MEDS: oxyCODONE/APAP (5/325 MG) 1 UDTAB TABLET PO PRN ×3 (05:05→16:27)
--- NOTE | 2019-05-03 05:07 | NUR ---
RN NOTES PERCOCET 5/325 MG GIVEN FOR COMPLAINTS OF GENERALIZED PAIN. WILL MONITOR.
[2019-05-03] MEDS: INSULIN REGULAR, HUMAN 100 UNIT/ML 3 ML VIAL SQ PRN ×3 (06:52→17:41)
--- NOTE | 2019-05-03 06:52 | NUR ---
RN NOTES ALL NEEDS ATTENDED AND MET, ABLE TO REST AND SLEPT AT INTERVALS, PHOTO FOR SKIN ASSESSMENT DONE, PICTURE OF LEFT LATERAL LEG IS IN THE PATIENT'S CHART. SAFETY MEASURES IN PLACE, WILL ENDORSE TO AM NURSE FOR THORACENTESIS TODAY.
[2019-05-03 07:11] LABS: CALCIUM, SERUM 9.6 mg/dL (8.5-10.1); CARBON DIOXIDE 28 mmol/L (21-32); CHLORIDE 94 mmol/L (98-107); CREATININE 2.1 mg/dL (0.6-1.3); GLUCOSE 237 mg/dL (74-106); POTASSIUM 5.4 mmol/L (3.5-5.1); SODIUM SERUM 130 mmol/L (136-145)
[2019-05-03 07:13] LABS: UREA NITROGEN, BLOOD 87 mg/dL (7-18)
[2019-05-03] MEDS: PANTOPRAZOLE 40 MG TABLET.DR PO SCH (07:30)
[2019-05-03 08:00] VITALS: BP 158/62
[2019-05-03] MEDS: APIXABAN 2.5 MG TABLET PO SCH ×2 (08:00→17:00)
[2019-05-03] MEDS: BLOOD SUGAR DIAGNOSTIC 1 EACH STRIP VI SCH ×4 (08:01→22:23)
[2019-05-03] MEDS: ASPIRIN EC 81 MG TABLET.DR PO SCH (09:00)
[2019-05-03] MEDS: AMLODIPINE BESYLATE 2.5 MG TABLET PO SCH (09:27)
[2019-05-03] MEDS: ACIDOPHILUS/BULGARICUS 1 EACH TAB.CHEW PO SCH (09:28)
[2019-05-03] MEDS: hydrALAZINE HCL 50 MG TABLET PO SCH ×3 (09:28→17:41)
[2019-05-03] MEDS: predniSONE 20 MG TABLET PO SCH (09:28)
[2019-05-03] MEDS: FOLIC ACID 1 MG TABLET PO SCH (09:28)
[2019-05-03] MEDS: MAGNESIUM OXIDE 400 MG TABLET PO SCH ×2 (09:28→17:41)
[2019-05-03] MEDS: METOPROLOL TARTRATE 25 MG TABLET PO SCH ×2 (09:28→21:00)
[2019-05-03] MEDS: BENZONATATE 100 MG CAPSULE PO SCH ×3 (09:28→17:42)
[2019-05-03] MEDS: MULTIVITAMINS,THERAGRAN 1 UDTAB TABLET PO SCH (09:28)
[2019-05-03] MEDS: FEBUXOSTAT 40 MG PO SCH (09:32)
[2019-05-03] MEDS: MENTHOL/CETYLPYRD (CEPACOL) 1 LOZ LOZENGE PO PRN (09:32)
[2019-05-03] MEDS: SILVER SULFADIAZINE 50 GM JAR TP SCH (09:33)
[2019-05-03] MEDS: Z GUARD REMEDY 2 OZ OINT TP SCH ×3 (09:33→17:42)
--- NOTE | 2019-05-03 11:00 | NUR ---
1000 ml of plural fluid from L lung. Patient stable with no distress noted , no SOB. Chest X-ray ordered.
[2019-05-03] MEDS: FUROSEMIDE 20 MG TABLET PO SCH (13:13)
[2019-05-03 16:00] VITALS: BP 145/51
--- NOTE | 2019-05-03 19:32 | NUR ---
MS RN OPENING NOTES PATIENT RECEIVED RESTING IN BED A/O X3. ON 2L OF O2 VIA NC WITH BREATHING EVEN AND UNLABORED, NO SOB NOTED. NO SIGNS OF ACUTE DISTRESS. NO CURRENT COMPLAINTS OF PAIN OR DISCOMFORT. MIDLINE LOCATED ON FRANCISCO PATENT AND INTACT. SAFETY PRECAUTIONS IN PLACE WITH BED IN LOWEST POSITION, CALL LIGHT WITHIN REACH, BREAKS ON, SIDE RAILS UP. WILL CONTINUE TO MONITOR THROUGHOUT THE NIGHT.
[2019-05-03 20:00] VITALS: BP 152/54
[2019-05-03 20:45] VITALS: BP 152/54
[2019-05-03] MEDS: ATORVASTATIN 10 MG TABLET PO SCH (21:09)
[2019-05-03] MEDS: BACI/NEOM/POLY B OINT PKT 1 UDPKT PACKET TP SCH (21:15)
--- NOTE | 2019-05-03 21:22 | NUR ---
MS RN NOTES DID NOT ADMIN METOPROLOL SCHEDULE DUE TO LOW HR OF 55. WILL CONTINUE TO MONITOR.
[2019-05-03] MEDS: *INSULIN REGULAR(HUMULIN R)HUM 100 UNIT/ML VIAL SQ PRN (22:16)
[2019-05-04] MEDS: IPRATROPIUM NEB FS 0.5 MG/2.5 ML AMPUL.NEB NEB SCH ×4 (00:36→19:30)
[2019-05-04] MEDS: ALBUTEROL FS 2.5 MG/3 ML VIAL.NEB NEB SCH ×4 (00:36→19:30)
[2019-05-04] MEDS: oxyCODONE/APAP (5/325 MG) 1 UDTAB TABLET PO PRN ×3 (02:36→18:52)
[2019-05-04 06:30] LABS: HEMATOCRIT 28 % (33-45); HEMOGLOBIN 9.1 g/dL (11.5-14.8); LYMPHOCYTES # (AUTO) 1.1 /CMM (0.8-4.8); LYMPHOCYTES % (AUTO) 8.5 % (20.0-44.0); MEAN CORPUSCULAR HGB CONC 33 g/dl (31.0-36.0); MEAN CORPUSCULAR VOLUME 81 fL (82-100); MONOCYTES # (AUTO) 1.3 /CMM (0.1-1.30); MONOCYTES % (AUTO) 10.3 % (2.0-12.0); NEUTROPHILS # (AUTO) 10.4 /CMM (1.8-8.9); NEUTROPHILS % (AUTO) 81.2 % (43.0-81.0); PLATELET COUNT (AUTO) 724 /CMM (150-450); RED BLOOD CELL COUNT(AUTO) 3.48 MIL/uL (4.0-5.2); WHITE BLOOD COUNT (AUTO) 12.8 K/uL (4.3-11.0)
--- NOTE | 2019-05-04 06:36 | NUR ---
MS RN CLOSING NOTES PATIENT RESTING IN BED A/O X3. ON 2L OF O2 VIA NC WITH BREATHING EVEN AND UNLABORED, NO SOB NOTED. NO SIGNS OF ACUTE DISTRESS. NO CURRENT COMPLAINTS OF PAIN OR DISCOMFORT. MIDLINE LOCATED ON FRANCISCO PATENT AND INTACT. SAFETY PRECAUTIONS IN PLACE WITH BED IN LOWEST POSITION, CALL LIGHT WITHIN REACH, BREAKS ON, SIDE RAILS UP. PATIENT WAS KEPT CLEAN AND DRY THROUGHOUT THE NIGHT, ALL NEEDS ATTENDED TO. WILL ENDORSE TO ONCOMING SHIFT ABOUT YANETH.
[2019-05-04] MEDS: BLOOD SUGAR DIAGNOSTIC 1 EACH STRIP VI SCH ×4 (06:43→21:51)
[2019-05-04] MEDS: INSULIN REGULAR, HUMAN 100 UNIT/ML 3 ML VIAL SQ PRN ×3 (06:53→17:26)
[2019-05-04 06:59] LABS: CREATINE KINASE, TOTAL 15 U/L (26-192)
[2019-05-04 07:18] LABS: ALANINE AMINOTRANSFERASE 11 U/L (12-78); ALBUMIN 2.8 g/dL (3.4-5.0); ALKALINE PHOSPHATASE 57 U/L (46-116); ASPARTATE AMINOTRANSFERASE 16 U/L (15-37); BILIRUBIN,TOTAL 0.2 mg/dL (0.2-1.0); CALCIUM, SERUM 9.3 mg/dL (8.5-10.1); CARBON DIOXIDE 30 mmol/L (21-32); CHLORIDE 95 mmol/L (98-107); GLUCOSE 214 mg/dL (74-106); PHOSPHORUS 3.1 mg/dL (2.5-4.9); POTASSIUM 5.3 mmol/L (3.5-5.1); SODIUM SERUM 130 mmol/L (136-145); TOTAL PROTEIN, SERUM 6.2 g/dL (6.4-8.2)
[2019-05-04 07:19] LABS: UREA NITROGEN, BLOOD 89 mg/dL (7-18)
[2019-05-04 08:00] VITALS: BP 143/81
[2019-05-04] MEDS: FUROSEMIDE 20 MG TABLET PO SCH (09:00)
[2019-05-04] MEDS: MULTIVITAMINS,THERAGRAN 1 UDTAB TABLET PO SCH (09:49)
[2019-05-04] MEDS: AMLODIPINE BESYLATE 2.5 MG TABLET PO SCH (09:49)
[2019-05-04] MEDS: METOPROLOL TARTRATE 25 MG TABLET PO SCH ×2 (09:50→21:00)
[2019-05-04] MEDS: MAGNESIUM OXIDE 400 MG TABLET PO SCH ×2 (09:50→17:21)
[2019-05-04] MEDS: predniSONE 20 MG TABLET PO SCH (09:50)
[2019-05-04] MEDS: PANTOPRAZOLE 40 MG TABLET.DR PO SCH (09:50)
[2019-05-04] MEDS: BENZONATATE 100 MG CAPSULE PO SCH ×3 (09:51→17:21)
[2019-05-04] MEDS: ASPIRIN EC 81 MG TABLET.DR PO SCH (09:51)
[2019-05-04] MEDS: FOLIC ACID 1 MG TABLET PO SCH (09:51)
[2019-05-04] MEDS: hydrALAZINE HCL 50 MG TABLET PO SCH ×3 (09:51→17:21)
[2019-05-04] MEDS: ACIDOPHILUS/BULGARICUS 1 EACH TAB.CHEW PO SCH (09:51)
[2019-05-04] MEDS: FEBUXOSTAT 40 MG PO SCH (09:54)
[2019-05-04] MEDS: Z GUARD REMEDY 2 OZ OINT TP SCH ×3 (09:54→17:56)
[2019-05-04] MEDS: SILVER SULFADIAZINE 50 GM JAR TP SCH (09:54)
[2019-05-04 10:00] VITALS: BP 143/81
[2019-05-04] MEDS: APIXABAN 2.5 MG TABLET PO SCH ×2 (10:03→17:26)
[2019-05-04] MEDS: POLYETHYLENE GLYCOL 3350 17 GM POWD.PACK PO PRN (11:33)
[2019-05-04] MEDS ORDERED: EPOETIN ALFA (10,000 UNIT) 10,000 UNIT/ML VIAL SQ SCH (13:00)
[2019-05-04 16:00] VITALS: BP 139/48
[2019-05-04] MEDS: EPOETIN ALFA (10,000 UNIT) 10,000 UNIT/ML VIAL SQ SCH (17:57)
--- NOTE | 2019-05-04 18:53 | NUR ---
Patient resting in bed , VS are stable and within baseline , no SOB noted, complains of generalized pain.PRN pain medication administrated. All needs attended , wound care provided. Patient kept clean and dry. FRANCISCO midline , intact and patent. Safety precautions in place , call light within reach. Will endorse to next shift for YANETH
--- NOTE | 2019-05-04 19:20 | NUR ---
MS RN OPENING NOTES PATIENT AWAKE IN BED. A/OX4. ABLE TO VERBALIZE NEEDS. ON 2L NC. NO C/O OF SOB OR PAIN AT THIS TIME. MIDLINE PRESENT ON RIGHT UPPER ARM, INTACT & PATENT, HEP LOCKED. SAFETY MEASURES IN PLACE. BED LOCKED, SIDE RAILS X2, CALL LIGHT WITHIN REACH. WILL CONTINUE TO MONITOR.
[2019-05-04 20:00] VITALS: BP 138/50
[2019-05-04] MEDS: ATORVASTATIN 10 MG TABLET PO SCH (21:47)
[2019-05-04] MEDS: BACI/NEOM/POLY B OINT PKT 1 UDPKT PACKET TP SCH (22:00)
[2019-05-04] MEDS: *INSULIN REGULAR(HUMULIN R)HUM 100 UNIT/ML VIAL SQ PRN (22:05)
[2019-05-05] MEDS: oxyCODONE/APAP (5/325 MG) 1 UDTAB TABLET PO PRN ×2 (01:00→12:13)
--- NOTE | 2019-05-05 01:00 | NUR ---
MS RN NOTES PATIENT C/O GENERALIZED BODY PAIN, RATED 8/10. PER REQUEST, ADMINISTERED 1 TAB OF PRN PERCOCET. VITAL SIGNS - BP: 137/48 HR: 53 RR: 18 SPO2: 99 ON 2L NC. SAFETY MEASURES IN PLACE. WILL CONTINUE TO MONITOR.
[2019-05-05] MEDS: ALBUTEROL FS 2.5 MG/3 ML VIAL.NEB NEB SCH ×3 (01:30→12:49)
[2019-05-05] MEDS: IPRATROPIUM NEB FS 0.5 MG/2.5 ML AMPUL.NEB NEB SCH ×3 (01:30→12:49)
--- NOTE | 2019-05-05 06:18 | NUR ---
MS RN CLOSING NOTES PATIENT REMAINED STABLE THROUGHOUT ENTIRE SHIFT. NO ACUTE CHANGES. A/OX3. ON 2L NC. PATIENT DENIES SOB OR PAIN AT THIS TIME. SAFETY MEASURES IN PLACE. WILL ENDORSE TO DAY SHIFT NURSE TO FOLLOW PLAN OF CARE.
[2019-05-05] MEDS: BLOOD SUGAR DIAGNOSTIC 1 EACH STRIP VI SCH ×3 (06:31→16:57)
[2019-05-05] MEDS: PANTOPRAZOLE 40 MG TABLET.DR PO SCH ×2 (06:31→08:36)
[2019-05-05] MEDS: INSULIN REGULAR, HUMAN 100 UNIT/ML 3 ML VIAL SQ PRN ×2 (07:03→12:15)
[2019-05-05 07:12] LABS: PTH, INTACT 46 pg/mL (15-65)
[2019-05-05 08:00] VITALS: BP 138/61
--- NOTE | 2019-05-05 08:00 | NUR ---
MS RN OPENING NOTE RECEIVED PT IN BED. AWAKE ALERT AND ORIENTED X4. NO CARDIAC OR RESP DISTRESS NOTED. NO SOB NOTED. ON 2L OF O2 VIA NC. SATURATING WELL. IV ACCESS NOTED ON R UOOER ARM MIDLINE. INTACT AND PATENT. NO S/S OF INFECTION OR INFILTRATION NOTED. FLUSHING WELL. SAFETY PRECAUTIONS IN PLACE. BED LOCKED AND IN LOW POSITION. SIDE RAILS UP. BED ALARM ON. CALL LIGHT WITHIN REACH. WILL CONT TO MONITOR.
[2019-05-05] MEDS: FOLIC ACID 1 MG TABLET PO SCH (08:36)
[2019-05-05] MEDS: predniSONE 20 MG TABLET PO SCH (08:36)
[2019-05-05] MEDS: MAGNESIUM OXIDE 400 MG TABLET PO SCH ×2 (08:36→16:56)
[2019-05-05] MEDS: ASPIRIN EC 81 MG TABLET.DR PO SCH (08:36)
[2019-05-05] MEDS: MULTIVITAMINS,THERAGRAN 1 UDTAB TABLET PO SCH (08:36)
[2019-05-05] MEDS: FUROSEMIDE 20 MG TABLET PO SCH (08:36)
[2019-05-05] MEDS: ACIDOPHILUS/BULGARICUS 1 EACH TAB.CHEW PO SCH (08:36)
[2019-05-05] MEDS: BENZONATATE 100 MG CAPSULE PO SCH ×3 (08:36→16:56)
[2019-05-05] MEDS: AMLODIPINE BESYLATE 2.5 MG TABLET PO SCH (08:37)
[2019-05-05] MEDS: hydrALAZINE HCL 50 MG TABLET PO SCH ×3 (08:37→16:56)
[2019-05-05] MEDS: APIXABAN 2.5 MG TABLET PO SCH ×2 (08:38→16:56)
[2019-05-05] MEDS: METOPROLOL TARTRATE 25 MG TABLET PO SCH (08:39)
[2019-05-05] MEDS: FEBUXOSTAT 40 MG PO SCH (08:44)
[2019-05-05] MEDS: Z GUARD REMEDY 2 OZ OINT TP SCH ×3 (08:45→16:57)
[2019-05-05] MEDS: SILVER SULFADIAZINE 50 GM JAR TP SCH (08:45)
[2019-05-05 10:06] LABS: *SPE A/G RATIO 0.9 (0.7-1.7); *SPE ALBUMIN 2.9 g/dL (2.9-4.4); *SPE ALPHA-1-GLOBULIN 0.3 g/dL (0.0-0.4); *SPE ALPHA-2-GLOBULIN 0.8 g/dL (0.4-1.0); *SPE BETA GLOBULIN 1.2 g/dL (0.7-1.3); *SPE GLOBULIN, TOTAL 3.1 g/dL (2.2-3.9); *SPE M-SPIKE Not Observed g/dL (Not Observed); *SPEGAMMA GLOBULIN 0.8 g/dL (0.4-1.8)
[2019-05-05] MEDS ORDERED: PRED20TA PO (11:16)
[2019-05-05 15:41] VITALS: BP 146/53
[2019-05-05 16:56] VITALS: BP 146/53
--- NOTE | 2019-05-05 17:45 | NUR ---
D/C TO [facility] PT WAS DISCHARGED TO [facility], REPORT GIVEN TO VIN KIRKLAND AT THE [facility]. PT WAS PICKED UP VIA AMBULANCE WITH 3 CHIEF RADIOLOGIC TECHNOLOGIST. BODY CHECK DONE, PICTURES TAKEN. WOUND TX PROVIDED. NO CARDIAC OR RESPIRATORY DISTRESS NOTED. VS STABLE. PT IN STABLE CONDITION UPON D/C.
== END 2019-05-05 17:45 | DRG 291 ==
LOC: ER 16:19 → TELE 20:35 → MED 04-29 09:25
PROVIDERS: ADMIT Internal Medicine; ATTEND Internal Medicine
PROC: 05HB33Z Insertion of Infusion Device into Right Basilic Vein, Percutaneous Approach (ICD-10-PCS; principal; 2019-04-30)
DX: I11.0 Hypertensive heart disease with heart failure (principal); J96.21 Acute and chronic respiratory failure with hypoxia; N17.0 Acute kidney failure with tubular necrosis; D68.69 Other thrombophilia; I50.33 Acute on chronic diastolic (congestive) heart failure; I27.20 Pulmonary hypertension, unspecified
CPT/HCPCS: 36415; 36600; 71045-TC; 80048-TC; 80053-TC; 80076-TC; 82040-TC; 82550-TC; 82803-TC; 82962-TC; 83735-TC; 83880; 83970; 84100-TC; 84155; 84165; 84484-TC; 85025-TC; 85730-TC; 87070-TC; 87081-TC; 88112-TC; 88305-TC; 88312-TC; 89051-TC; 93307-TC; 93970-TC; 94799-TC; A4217; A6253; A6403; G0378; J0885; J1815; J1940; J2930

== ENCOUNTER 2019-10-03 11:54 | Inpatient (IN) | payer MEDICARE, BC ==
[~2019-10-03] VITALS: Ht 162.6 cm; Wt 70.8 kg
[~2019-10-03 11:54] MED LIST changes: +ACID1TAB14 PO; -AMLO10TA7 PO; +AMLO2.5T4 PO; -ASPI-1152 PO; +ASPI-1420 PO; -AZIT250T13 PO; -CALC-534 PO; +MAGN400T26 PO; +METO25TA20 PO; +MULT-754 PO; -MULT1TAB73 PO; +PRED20TA PO
--- NOTE | 2019-10-03 12:25 | NUR ---
[facility] BED 6. AAOX4. NOT IN RESP DISTRESS, BRAETHING EVEN AND UNLABORED. CAME IN FOR INCREASED EDEMA ON HER L LOWER LEG W/ NEW ONSET PAIN. PT ALSO COMPLAINING OF DIFFUSED ABDOMINAL PAIN X 3 DAYS. PT STATES SHE IS NAUSEOUS. WAS A THE BEDSIDE FOR EVAL. ORDERS RECIEVED, NOTED AND CARRIED OUT. IV LINE ESTABLSHIED ON R AC 20G. BLOOD DRAWN AND GIVEN TO COMMUNITY SERVICE OFFICER COORDINATOR.
[2019-10-03 12:49] LABS: BASOPHILS % (AUTO) 0.2 % (0.0-2.0); HEMATOCRIT 25 % (33-45); HEMOGLOBIN 7.9 g/dL (11.5-14.8); LYMPHOCYTES # (AUTO) 0.6 /CMM (0.8-4.8); LYMPHOCYTES % (AUTO) 2.9 % (20.0-44.0); MEAN CORPUSCULAR HGB CONC 31 g/dl (31.0-36.0); MEAN CORPUSCULAR VOLUME 86 fL (82-100); MONOCYTES # (AUTO) 0.9 /CMM (0.1-1.30); MONOCYTES % (AUTO) 4.5 % (2.0-12.0); NEUTROPHILS # (AUTO) 18.5 /CMM (1.8-8.9); NEUTROPHILS % (AUTO) 92.4 % (43.0-81.0); PLATELET COUNT (AUTO) 561 /CMM (150-450); RED BLOOD CELL COUNT(AUTO) 2.93 MIL/uL (4.0-5.2)
[2019-10-03 12:55] LABS: CALCIUM, SERUM 9.1 mg/dL (8.5-10.1); CARBON DIOXIDE 25 mmol/L (21-32); CHLORIDE 94 mmol/L (98-107); CREATININE 2.8 mg/dL (0.6-1.3); GLUCOSE 167 mg/dL (74-106); POTASSIUM 4.4 mmol/L (3.5-5.1); SODIUM SERUM 128 mmol/L (136-145)
[2019-10-03 12:57] LABS: UREA NITROGEN, BLOOD 80 mg/dL (7-18)
--- NOTE | 2019-10-03 12:58 | NUR ---
[facility].
[2019-10-03 13:08] LABS: ALANINE AMINOTRANSFERASE 26 U/L (12-78); ALBUMIN 2.7 g/dL (3.4-5.0); ALKALINE PHOSPHATASE 74 U/L (46-116); ASPARTATE AMINOTRANSFERASE 32 U/L (15-37); B-TYPE NATRIURETIC PEPTIDE 23870 PG/ML (0-125); BILIRUBIN,DIRECT 0.2 mg/dL (0.0-0.2); BILIRUBIN,TOTAL 0.5 mg/dL (0.2-1.0); TOTAL PROTEIN, SERUM 8.3 g/dL (6.4-8.2)
--- NOTE | 2019-10-03 13:29 | NUR ---
COVID SWAB DONE AND SENT TO LAB
[2019-10-03] MEDS ORDERED: ALBUTEROL SULFATE INH 18 GM HFA.AER.AD IH PRN (13:30)
[2019-10-03] MEDS ORDERED: ZOLPIDEM TARTRATE 5 MG TABLET PO PRN (13:30)
[2019-10-03] MEDS ORDERED: CLONIDINE HCL 0.1 MG TABLET PO PRN (13:30)
[2019-10-03] MEDS ORDERED: LOPERAMIDE HCL (2 MG CAP) 2 MG CAPSULE PO PRN (13:30)
[2019-10-03] MEDS ORDERED: oxyCODONE/APAP (5/325 MG) 1 UDTAB TABLET PO PRN (13:30)
[2019-10-03] MEDS ORDERED: Medication Not On Formulary EA (Ondansetron Hcl (Zofran) 4 MG) PO PRN (13:30)
[2019-10-03] MEDS ORDERED: MAGNESIUM HYDROXIDE 30 ML UDC PO PRN (14:00)
[2019-10-03] MEDS ORDERED: HYDROCODONE/APAP 5/325MG TABLET PO PRN ×2 (14:00→15:00)
[2019-10-03] MEDS ORDERED: MAG HYDROX/AL HYDROX/SIMETH 30 ML UDC PO PRN (14:00)
[2019-10-03] MEDS ORDERED: ACETAMINOPHEN 325 MG TABLET PO PRN (14:00)
[2019-10-03] MEDS ORDERED: Z GUARD REMEDY 2 OZ OINT TP PRN (14:00)
[2019-10-03] MEDS ORDERED: ONDANSETRON HCL/PF 4 MG/2 ML VIAL IVP PRN (14:00)
[2019-10-03] MEDS ORDERED: DEXTROSE 50%-WATER 50 ML DISP.SYRIN IV PRN (14:00)
--- NOTE | 2019-10-03 14:22 | NUR ---
REPORT GIVEN TO CIERRA DURHAM FOR YANETH
--- NOTE | 2019-10-03 14:45 | NUR ---
PT TRANSPORTED TO UNIT ON GURNEY WITH EMT AND RN AT BEDSIDE W/ ACLS PROTOCOL. NAD NOTED DURING TRANSPORT.
[2019-10-03] MEDS ORDERED: MENTHOL/CETYLPYRD (CEPACOL) 1 LOZ LOZENGE MM PRN (15:00)
--- NOTE | 2019-10-03 15:00 | NUR ---
Patient admitted to TELE with Dx CHF. Covid test pending. Patient awake alert and oriented x4 , not in distress , afebrile. VS are stable, on o2 2L saturating above 95%. B/L leg edema with blisters noted. Multiple skin issues; pictures are taken and placed in the chart. IV line to the right upper arm G18 , flushing well. Patient oriented to unit and room, call light within reach. Orders implemented. Will continue to monitor.
[2019-10-03] MEDS ORDERED: METOCLOPRAMIDE HCL 10 MG TABLET PO PRN (15:30)
[2019-10-03] MEDS: FUROSEMIDE 40 MG/4 ML VIAL IV SCH ×2 (15:44→21:02)
[2019-10-03 16:00] VITALS: BP 139/81
[2019-10-03] MEDS: oxyCODONE/APAP (5/325 MG) 1 UDTAB TABLET PO PRN (17:11)
[2019-10-03] MEDS: VALSARTAN 80 MG TABLET PO SCH (17:12)
[2019-10-03] MEDS: MAGNESIUM OXIDE 400 MG TABLET PO SCH (17:12)
[2019-10-03] MEDS: BENZONATATE 100 MG CAPSULE PO SCH (17:13)
[2019-10-03] MEDS: hydrALAZINE HCL 50 MG TABLET PO SCH (17:13)
[2019-10-03] MEDS: PIPERACILLIN /TAZOBACTAM 2.25 G in IV D5W 50 ML IV SCH ×2 (17:14→23:21)
[2019-10-03] MEDS: APIXABAN 5 MG TABLET PO SCH (17:29)
--- NOTE | 2019-10-03 18:10 | NUR ---
Accu-check done ; 190. patient refused Insulin, states she gets insulin only if more than 200. Patient educated but still refusing.
[2019-10-03] MEDS: BLOOD SUGAR DIAGNOSTIC 1 EACH STRIP VI SCH ×2 (18:27→21:48)
[2019-10-03] MEDS: INSULIN REGULAR, HUMAN 100 UNIT/ML 3 ML VIAL SQ PRN (18:27)
--- NOTE | 2019-10-03 19:34 | NUR ---
[employer] FORMER SUPERVISOR OPENING NOTES PATIENT AWAKE IN BED. A/OX4. ON 2L NC; PATIENT DENIES SOB; BREATHING IS EVEN AND UNLABORED; DENIES ANY PAIN AT THIS TIME. TELE MONITOR READING NSR, HEART RATE 65. IV PRESENT ON RIGHT UPPER ARM, SIZE 18, INTACT & PATENT, HEP LOCKED. CONTACT/DROPLET ISOLATION IN PLACE FOR R/O COVID 19; RESULTS PENDING. SAFETY MEASURES IN PLACE AND PATIENT'S NEEDS MET. BED LOCKED, ALARM ON, SIDE RAIL X2, HOB ELEVATED, CALL LIGHT WITHIN REACH. WILL CONTINUE TO MONITOR.
--- NOTE | 2019-10-03 19:47 | NUR ---
Report given to next shift nurse.
[2019-10-03 20:00] VITALS: BP 118/45
[2019-10-03] MEDS: ATORVASTATIN 10 MG TABLET PO SCH (21:02)
[2019-10-03] MEDS: METOPROLOL TARTRATE 25 MG TABLET PO SCH (21:02)
--- NOTE | 2019-10-03 21:46 | NUR ---
SALES TRAINEE NOTES PATIENT'S BLOOD GLUCOSE 165. PATIENT REFUSES INSULIN COVERAGE AT THIS TIME. PATIENT STATES THAT SHE DOES NOT TAKE INSULIN UNLESS BLOOD SUGAR IS GREATER THAN 200
[2019-10-04] VITALS: BP 140/59
[2019-10-04 04:00] VITALS: BP 154/60
--- NOTE | 2019-10-04 05:57 | NUR ---
DAMPER FITTER NOTES PATIENT REFUSED AM LABS AT THIS TIME. TARIFF COMPILER TO COME BACK AT A LATER TIME
--- NOTE | 2019-10-04 06:54 | NUR ---
LOW VOLTAGE ELECTRICIAN CLOSING NOTES PATIENT SLEEPING, EASY TO AWAKEN. A/OX4. ON 2L NC; NO S/S OF ACUTE RESPIRATORY; BREATHING IS EVEN AND UNLABORED. TELE MONITOR READING NSR, HEART RATE 60. IV PRESENT ON RIGHT UPPER ARM, SIZE 18, INTACT & PATENT, HEP LOCKED. SAFETY MEASURES IN PLACE AND PATIENT'S NEEDS MET. BED LOCKED, ALARM ON, SIDE RAIL X2, HOB ELEVATED, CALL LIGHT WITHIN REACH. WILL ENDORSE TO DAY SHIFT RN PLAN OF CARE.
--- NOTE | 2019-10-04 07:35 | NUR ---
RN OPENING NOTES RECEIVED PATIENT AWAKE IN BED. A/OX4. ON 2L NC. PATIENT DENIES SOB; BREATHING IS EVEN AND UNLABORED; DENIES ANY PAIN AT THIS TIME. TELE MONITOR READING NSR, HEART RATE 65. IV PRESENT ON RIGHT UPPER ARM, SIZE 18, INTACT & PATENT, HEP LOCKED. CONTACT/DROPLET ISOLATION IN PLACE FOR R/O COVID 19; RESULTS PENDING. SAFETY MEASURES IN PLACE , BED IS LOCKED AND IN LOWEST.ALARM IS ON, SIDE RAIL X2, HOB ELEVATED, CALL LIGHT WITHIN REACH. WILL CONTINUE TO MONITOR.
[2019-10-04] MEDS: PANTOPRAZOLE 40 MG TABLET.DR PO SCH (08:16)
[2019-10-04] MEDS: BLOOD SUGAR DIAGNOSTIC 1 EACH STRIP VI SCH ×3 (08:24→17:56)
--- NOTE | 2019-10-04 08:25 | NUR ---
rn notes BS 119, PT REFUSED INSULIN IF BS IS LESS THAN 200
[2019-10-04] MEDS: PIPERACILLIN /TAZOBACTAM 2.25 G in IV D5W 50 ML IV SCH ×2 (08:31→15:53)
[2019-10-04] MEDS: FUROSEMIDE 40 MG/4 ML VIAL IV SCH (09:17)
[2019-10-04] MEDS: MULTIVITAMINS,THERAGRAN 1 UDTAB TABLET PO SCH (09:17)
[2019-10-04] MEDS: MAGNESIUM OXIDE 400 MG TABLET PO SCH ×2 (09:17→16:58)
[2019-10-04] MEDS: BENZONATATE 100 MG CAPSULE PO SCH ×3 (09:18→16:58)
[2019-10-04] MEDS: ASPIRIN EC 81 MG TABLET.DR PO SCH (09:18)
[2019-10-04] MEDS: FOLIC ACID 1 MG TABLET PO SCH (09:18)
[2019-10-04] MEDS: VALSARTAN 80 MG TABLET PO SCH ×2 (09:20→16:57)
[2019-10-04] MEDS: hydrALAZINE HCL 50 MG TABLET PO SCH ×3 (09:21→16:58)
[2019-10-04] MEDS: METOPROLOL TARTRATE 25 MG TABLET PO SCH ×2 (09:21→22:27)
[2019-10-04] MEDS: AMLODIPINE BESYLATE 2.5 MG TABLET PO SCH (09:22)
[2019-10-04 09:27] VITALS: BP 161/65
[2019-10-04] MEDS: APIXABAN 5 MG TABLET PO SCH ×2 (09:28→16:59)
[2019-10-04] MEDS: oxyCODONE/APAP (5/325 MG) 1 UDTAB TABLET PO PRN ×2 (11:06→22:26)
--- NOTE | 2019-10-04 12:02 | NUR ---
WOUND CARE CONSULT: REVIEWED CHART, NURSING DOCUMENTATION AND PHOTOS WHICH INDICATE POSSIBLE DEEP TISSUE INJURY TO BACK, LOWER LEG WOUND, PRESENT ON ADMISSION. RECOMMEND SURGICAL AND DPM CONSULTS. DR LUGO AND DR GANT NOTIFIED OF CONSULT REQUESTS. RECOMMENDATIONS MADE FOR SKIN PROTECTION. DISCUSSED WITH NURSING STAFF. WILL SEE PRN. PT IS ON [place] ISOFLEX LOW AIRLOSS BED. MD IN AGREEMENT WITH PLAN OF CARE.
[2019-10-04] MEDS: NYSTATIN TOP POWDER 15 GM BOTTLE TP SCH ×2 (14:38→16:59)
[2019-10-04 16:09] LABS: BASOPHILS % (AUTO) 0.3 % (0.0-2.0); EOSINOPHILS % (AUTO) 0.5 % (0.0-6.0); HEMATOCRIT 24 % (33-45); HEMOGLOBIN 7.7 g/dL (11.5-14.8); LYMPHOCYTES # (AUTO) 0.9 /CMM (0.8-4.8); LYMPHOCYTES % (AUTO) 7.2 % (20.0-44.0); MEAN CORPUSCULAR HGB CONC 32 g/dl (31.0-36.0); MEAN CORPUSCULAR VOLUME 85 fL (82-100); MONOCYTES # (AUTO) 0.7 /CMM (0.1-1.30); MONOCYTES % (AUTO) 5.4 % (2.0-12.0); NEUTROPHILS # (AUTO) 10.8 /CMM (1.8-8.9); NEUTROPHILS % (AUTO) 86.6 % (43.0-81.0); PLATELET COUNT (AUTO) 532 /CMM (150-450); RED BLOOD CELL COUNT(AUTO) 2.84 MIL/uL (4.0-5.2); WHITE BLOOD COUNT (AUTO) 12.5 K/uL (4.3-11.0)
[2019-10-04 16:23] LABS: CALCIUM, SERUM 8.7 mg/dL (8.5-10.1); CARBON DIOXIDE 27 mmol/L (21-32); CHLORIDE 94 mmol/L (98-107); CREATININE 2.6 mg/dL (0.6-1.3); GLUCOSE 174 mg/dL (74-106); MAGNESIUM 2.3 mg/dL (1.8-2.4); PHOSPHORUS 3.4 mg/dL (2.5-4.9); POTASSIUM 3.9 mmol/L (3.5-5.1); SODIUM SERUM 127 mmol/L (136-145)
[2019-10-04 16:53] LABS: UREA NITROGEN, BLOOD 85 mg/dL (7-18)
--- NOTE | 2019-10-04 18:32 | NUR ---
RN CLOSING NOTES WILL ENDORSE PT TO PM NURSE FOR YANETH. PATIENT AWAKE IN BED. A/OX4. ON 2L NC. PATIENT DENIES SOB; BREATHING IS EVEN AND UNLABORED. PATIENT IS NOW MS, NO TELE. . IV PRESENT ON RIGHT UPPER ARM, SIZE 18, INTACT & PATENT, HEP LOCKED. ALL NEEDS RENDERED DURING SHIFT. SAFETY MEASURES IN PLACE , BED IS LOCKED AND IN LOWEST.ALARM IS ON, SIDE RAIL X2, HOB ELEVATED, CALL LIGHT WITHIN REACH.
[2019-10-04 21:45] VITALS: BP 160/57
[2019-10-04] MEDS: DOXYCYCLINE HYCLATE (100 MG) 100 MG TABLET PO SCH (22:26)
[2019-10-04] MEDS: ATORVASTATIN 10 MG TABLET PO SCH (22:26)
[2019-10-05] MEDS: PIPERACILLIN /TAZOBACTAM 2.25 G in IV D5W 50 ML IV SCH ×3 (00:24→15:20)
[2019-10-05] MEDS: *INSULIN REGULAR(HUMULIN R)HUM 100 UNIT/ML VIAL SQ PRN ×2 (00:26→21:24)
[2019-10-05] MEDS: BLOOD SUGAR DIAGNOSTIC 1 EACH STRIP VI SCH ×5 (01:00→21:23)
--- NOTE | 2019-10-05 02:40 | NUR ---
MS2/RH PATIENT IS SLEEPING AT THIS TIME, APPEAR COMFORTABLE, NO SIGNS OF DISTRESS NOTED, CALL LIGHT IN REACH. WILL CONTINUE TO MONITOR.
--- NOTE | 2019-10-05 06:26 | NUR ---
MS2/RN PATIENT IS SLEEPING, EASILY AROUSABLE, APPEAR COMFORTABLE, NO SIGNS OF DISTRESS NOTED, REFUSED MORNING CARE AT 0500, REFUSED BLOOD DRAW PER CLINICAL PROJECT LEADER, ALL NEEDS ATTENDED AT THIS TIME, WILL CONTINUE TO MONITOR.
[2019-10-05] MEDS: PANTOPRAZOLE 40 MG TABLET.DR PO SCH (07:15)
--- NOTE | 2019-10-05 07:30 | NUR ---
MS/RN - Assessment Patient in bed awake, A/O X 4, denies chest pain at this time, no complaints overnight, on supplemental oxygen at 2lpm via NC, no c/o SOB. Saline lock on the RAC is patent, intact, flushing well. Labs reviewed noted with low hemoglobin 7.3, on Epogen 10,000 units every Friday and Friday, sodium 126, will relay to MD. Patient refused fingerstick blood sugar check. Fall and aspiration precautions maintained. Patient updated on plan of care and in agreement. Will continue with current medical management.
[2019-10-05 08:00] VITALS: BP_SYST 104; BP_SYST 148; BP_DIAS 54; BP_DIAS 58
[2019-10-05] MEDS: MAGNESIUM OXIDE 400 MG TABLET PO SCH ×2 (08:19→17:12)
[2019-10-05] MEDS: APIXABAN 5 MG TABLET PO SCH ×2 (08:25→17:00)
[2019-10-05] MEDS: FOLIC ACID 1 MG TABLET PO SCH (08:26)
[2019-10-05] MEDS: DOXYCYCLINE HYCLATE (100 MG) 100 MG TABLET PO SCH ×2 (08:26→21:16)
[2019-10-05] MEDS: MULTIVITAMINS,THERAGRAN 1 UDTAB TABLET PO SCH (08:26)
[2019-10-05] MEDS: VALSARTAN 80 MG TABLET PO SCH ×2 (08:26→17:12)
[2019-10-05] MEDS: oxyCODONE/APAP (5/325 MG) 1 UDTAB TABLET PO PRN ×3 (08:26→21:33)
[2019-10-05] MEDS: METOPROLOL TARTRATE 25 MG TABLET PO SCH ×2 (08:26→21:15)
[2019-10-05] MEDS: AMLODIPINE BESYLATE 2.5 MG TABLET PO SCH (08:26)
[2019-10-05] MEDS: hydrALAZINE HCL 50 MG TABLET PO SCH ×3 (08:26→17:12)
[2019-10-05] MEDS: ASPIRIN EC 81 MG TABLET.DR PO SCH (08:26)
[2019-10-05] MEDS: FUROSEMIDE 40 MG/4 ML VIAL IV SCH (08:27)
[2019-10-05] MEDS: NYSTATIN TOP POWDER 15 GM BOTTLE TP SCH ×2 (08:28→17:14)
[2019-10-05] MEDS: BENZONATATE 100 MG CAPSULE PO SCH ×3 (08:59→17:12)
--- NOTE | 2019-10-05 09:30 | NUR ---
MS/RN - Pulmo consult Seen and examined by Dr. Esquivel with order for CT chest high resolution to evaluate for interstitial lung disease.
[2019-10-05 10:14] LABS: BASOPHILS % (AUTO) 0.1 % (0.0-2.0); EOSINOPHILS % (AUTO) 0.5 % (0.0-6.0); HEMATOCRIT 23 % (33-45); HEMOGLOBIN 7.3 g/dL (11.5-14.8); LYMPHOCYTES # (AUTO) 0.5 /CMM (0.8-4.8); LYMPHOCYTES % (AUTO) 3.4 % (20.0-44.0); MEAN CORPUSCULAR HGB CONC 31 g/dl (31.0-36.0); MEAN CORPUSCULAR VOLUME 86 fL (82-100); MONOCYTES % (AUTO) 6.5 % (2.0-12.0); NEUTROPHILS # (AUTO) 13.5 /CMM (1.8-8.9); NEUTROPHILS % (AUTO) 89.5 % (43.0-81.0); PLATELET COUNT (AUTO) 475 /CMM (150-450); RED BLOOD CELL COUNT(AUTO) 2.71 MIL/uL (4.0-5.2); WHITE BLOOD COUNT (AUTO) 15.1 K/uL (4.3-11.0)
--- NOTE | 2019-10-05 10:17 | NUR ---
PATIENT IS REFUSING CT SCAN @1000. CIERRA ANGELES
--- NOTE | 2019-10-05 10:30 | NUR ---
MS/RN - Notes Patient refused CT chest to be done, explained the importance but still doesn't want it.
[2019-10-05 11:06] LABS: ALANINE AMINOTRANSFERASE 17 U/L (12-78); ALBUMIN 2.2 g/dL (3.4-5.0); ALKALINE PHOSPHATASE 63 U/L (46-116); ASPARTATE AMINOTRANSFERASE 19 U/L (15-37); BILIRUBIN,TOTAL 0.4 mg/dL (0.2-1.0); CALCIUM, SERUM 8.8 mg/dL (8.5-10.1); CARBON DIOXIDE 26 mmol/L (21-32); CHLORIDE 94 mmol/L (98-107); CREATININE 2.3 mg/dL (0.6-1.3); GLUCOSE 191 mg/dL (74-106); MAGNESIUM 2.3 mg/dL (1.8-2.4); PHOSPHORUS 2.8 mg/dL (2.5-4.9); POTASSIUM 4.2 mmol/L (3.5-5.1); SODIUM SERUM 126 mmol/L (136-145); TOTAL PROTEIN, SERUM 6.3 g/dL (6.4-8.2)
[2019-10-05 11:08] LABS: UREA NITROGEN, BLOOD 80 mg/dL (7-18)
[2019-10-05 11:13] LABS: CREATINE KINASE, TOTAL 44 U/L (26-192); THYROID STIMULATING HORMONE 1.157 uIU/mL (0.358-3.74); URIC ACID 6.8 mg/dL (2.6-7.2)
[2019-10-05 12:00] LABS: IRON, SERUM 17 ug/dl (50-175); TOTAL IRON BINDING CAPACITY 458 ug/dl (250-450)
[2019-10-05 13:56] LABS: FERRITIN 90 ng/mL (8-388)
[2019-10-05] MEDS: EPOETIN ALFA (10,000 UNIT) 10,000 UNIT/ML VIAL SQ SCH (15:19)
[2019-10-05 16:00] VITALS: BP 148/54
--- NOTE | 2019-10-05 19:30 | NUR ---
MS/RN - End of shift summary No significant change in condition seen. Patient on Lasix 40 mg IVP, diuresing well, compliant with fluid restriction, refused accuchecks, repositioning q2h. No fall/injury noted this shift. All needs attended. Endorsed to night RN accordingly.
--- NOTE | 2019-10-05 19:30 | NUR ---
RN OPENING NOTES PT RECEIVED AWAKE, SITTING UP IN BED. A/OX3. ON 2L O2 VIA NC, BREATHING EVEN AND UNLABORED. DENIES SOB OR PAIN AT THIS TIME. IN NO ACUTE DISTRESS. IV TO RAC PATENT AND INTACT. BED IN LOW/LOCKED POSITION WITH CALL LIGHT IN REACH, SIDE RAILS UPX3. BED ALARM ON FOR SAFETY, HOURLY AND PRN ROUNDING.
[2019-10-05 20:00] VITALS: BP 160/63
[2019-10-05] MEDS: CEFEPIME 2 GM in IV D5W 100 ML IV SCH (21:15)
[2019-10-05] MEDS: ATORVASTATIN 10 MG TABLET PO SCH (21:15)
--- NOTE | 2019-10-05 22:00 | NUR ---
PT NONCOMPLIANT WITH REPOSITIONING, DOES NOT WANT TO BE CHANGED AT THIS TIME DESPITE MULTIPLE ATTEMPTS AND EDUCATION OF IMPORTANCE OF STAYING CLEAN/DRY AND TURNING Q2H. REFUSING TO ELEVATE LEGS ON PILLOWS.
[2019-10-06] MEDS: oxyCODONE/APAP (5/325 MG) 1 UDTAB TABLET PO PRN ×3 (03:34→17:21)
--- NOTE | 2019-10-06 05:50 | NUR ---
PT REFUSING TO BE TURNED/REPOSITIONED, DOES NOT WANT US TO CHECK HER ABSORBENT PAD TO SEE IF SHE IS SOILED. SHE SAYS "IM NOT WET". RAISED CONCERN THAT SHE MAY HAVE RETENTION IF SHE HASNT URINATED ALL SHIFT, TRIED TO BLADDER SCAN AND STRAIGHT CATH FOR URINE SAMPLE HOWEVER PT REFUSED. ALSO REFUSED WOUND CX AT THIS TIME. MULTIPLE ATTEMPTS MADE WITH ANOTHER RN. PT STILL STRONGLY REFUSING AND INCREASINGLY AGITATED. WANTS TO BE LEFT ALONE.
--- NOTE | 2019-10-06 06:18 | NUR ---
PT REFUSED CHEST XRAY. PER TECH, ORDER WILL BE PLACED ON HOLD FOR NOW. PLEASE CALL RADIOLOGY WHEN PT AGREES TO HAVE IT DONE
[2019-10-06] MEDS: PANTOPRAZOLE 40 MG TABLET.DR PO SCH (06:41)
[2019-10-06] MEDS: BLOOD SUGAR DIAGNOSTIC 1 EACH STRIP VI SCH ×4 (06:51→21:55)
--- NOTE | 2019-10-06 07:14 | NUR ---
RN CLOSING NOTES PT RESTING COMFORTABLY IN BED. HOB ELEVATED. ON 2L NC, BREATHING EVEN AND UNLABORED. PAIN MANAGED WITH PRN PERCOSET. IN NO ACUTE DISTRESS. IV TO RAC PATENT AND INTACT. REFUSED NURSING CARE THROUGHOUT SHIFT, INCLUDING TURNING/REPOSITIONING AND HYGIENE. OTHERWISE, NO CHANGES OVERNIGHT. BED REMAINS IN LOW/LOCKED POSITION WITH CALL LIGHT IN REACH. SIDE RAILS UPX3. BED ALARM ON FOR SAFETY. ENDORSED TO DAY SHIFT CIERRA WOLFE.
[2019-10-06 07:16] LABS: BASOPHILS # (AUTO) 0.1 /CMM (0.0-0.2); BASOPHILS % (AUTO) 0.4 % (0.0-2.0); HEMATOCRIT 24 % (33-45); HEMOGLOBIN 7.5 g/dL (11.5-14.8); LYMPHOCYTES # (AUTO) 1.4 /CMM (0.8-4.8); LYMPHOCYTES % (AUTO) 7.5 % (20.0-44.0); MEAN CORPUSCULAR HGB CONC 31 g/dl (31.0-36.0); MEAN CORPUSCULAR VOLUME 85 fL (82-100); MONOCYTES # (AUTO) 1.7 /CMM (0.1-1.30); MONOCYTES % (AUTO) 9.2 % (2.0-12.0); NEUTROPHILS # (AUTO) 15.2 /CMM (1.8-8.9); NEUTROPHILS % (AUTO) 81.9 % (43.0-81.0); PLATELET COUNT (AUTO) 550 /CMM (150-450); RED BLOOD CELL COUNT(AUTO) 2.84 MIL/uL (4.0-5.2); WHITE BLOOD COUNT (AUTO) 18.6 K/uL (4.3-11.0)
[2019-10-06 07:36] LABS: CARBON DIOXIDE 24 mmol/L (21-32); CHLORIDE 94 mmol/L (98-107); CREATININE 2.2 mg/dL (0.6-1.3); GLUCOSE 144 mg/dL (74-106); POTASSIUM 3.8 mmol/L (3.5-5.1); SODIUM SERUM 129 mmol/L (136-145)
[2019-10-06 07:41] LABS: UREA NITROGEN, BLOOD 83 mg/dL (7-18)
[2019-10-06 08:00] VITALS: BP 158/58
--- NOTE | 2019-10-06 08:00 | NUR ---
MS/RN - Assessment Patient in bed awake, A/O X 4, appears comfortable, afebrile, on oxygen at 2lpm via NC, no c/o SOB. Saline lock on the RAC is patent, intact, flushing well. Patient non compliant with treatment, refused repositioning, offloading of LLE, wound care. Explained the importance but still refused. Patient agreed to do urine collection and CT chest today. Fall and aspiration precautions maintained. Will continue with current medical management.
[2019-10-06 08:14] LABS: PTH, INTACT 76 pg/mL (15-65)
[2019-10-06] MEDS: ASPIRIN EC 81 MG TABLET.DR PO SCH (08:36)
[2019-10-06] MEDS: DOXYCYCLINE HYCLATE (100 MG) 100 MG TABLET PO SCH ×2 (08:36→21:35)
[2019-10-06] MEDS: FUROSEMIDE 40 MG/4 ML VIAL IV SCH (08:36)
[2019-10-06] MEDS: METOPROLOL TARTRATE 25 MG TABLET PO SCH ×2 (08:36→21:35)
[2019-10-06] MEDS: MULTIVITAMINS,THERAGRAN 1 UDTAB TABLET PO SCH (08:37)
[2019-10-06] MEDS: VALSARTAN 80 MG TABLET PO SCH ×2 (08:37→16:42)
[2019-10-06] MEDS: AMLODIPINE BESYLATE 2.5 MG TABLET PO SCH (08:37)
[2019-10-06] MEDS: BENZONATATE 100 MG CAPSULE PO SCH ×3 (08:37→16:42)
[2019-10-06] MEDS: MAGNESIUM OXIDE 400 MG TABLET PO SCH ×2 (08:37→16:42)
[2019-10-06] MEDS: APIXABAN 5 MG TABLET PO SCH ×2 (08:37→16:43)
[2019-10-06] MEDS: hydrALAZINE HCL 50 MG TABLET PO SCH ×3 (08:37→16:42)
[2019-10-06] MEDS: FOLIC ACID 1 MG TABLET PO SCH (08:37)
[2019-10-06] MEDS: NYSTATIN TOP POWDER 15 GM BOTTLE TP SCH ×2 (08:38→16:43)
[2019-10-06 10:10] LABS: APPEARANCE,URINE CLOUDY (CLEAR); BILIRUBIN,URINE NEGATIVE (NEGATIVE); BLOOD, URINE NEGATIVE Ery/uL (NEGATIVE); COLOR,URINE YELLOW (YELLOW); KETONES,URINE NEGATIVE (NEGATIVE); LEUKOCYTE ESTERASE ,URINE SMALL (NEGATIVE); NITRITE, URINE NEGATIVE (NEGATIVE); PH,URINE 5.5 (5.0-8.0); PROTEIN,URINE 100 mg/dl (NEGATIVE); UGLUCOSE NEGATIVE (NEGATIVE); UROBILINOGEN,URINE 0.2 EU/dL (0.2)
[2019-10-06 10:27] LABS: CREATININE, URINE 86.9 MG/DL (30.0-125.0); URINE TOTAL PROTEIN 86.5 mg/dL (0-11.9)
[2019-10-06 11:51] LABS: EOSINOPHIL,URINE None Seen
[2019-10-06 11:53] LABS: BACTERIA,URINE None seen /HPF (None Seen); RBC,URINE 0-2 /HPF (0-2); SQUAMOUS EPITHELIAL CELL,UR Moderate /HPF (None Seen)
[2019-10-06] MEDS: SOD FERRIC GLUC 125 MG in IV NS 0.9% 100 ML IV SCH (14:26)
[2019-10-06 16:00] VITALS: BP 143/56
[2019-10-06 17:12] LABS: *SPE A/G RATIO 0.7 (0.7-1.7); *SPE ALBUMIN 2.3 g/dL (2.9-4.4); *SPE ALPHA-1-GLOBULIN 0.4 g/dL (0.0-0.4); *SPE GLOBULIN, TOTAL 3.2 g/dL (2.2-3.9); *SPE M-SPIKE Not Observed g/dL (Not Observed); *SPEGAMMA GLOBULIN 0.8 g/dL (0.4-1.8)
--- NOTE | 2019-10-06 19:00 | NUR ---
MS/RN - End of shift summary No significant change in condition seen. Patient non-compliant with treatment plan, refused ABG this morning. All needs attended. Will continue with current medical management.
--- NOTE | 2019-10-06 19:30 | NUR ---
MS/RN OPENING NOTES: RECEIVED PT. AWAKE, SITTING UP IN BED. A/OX3 VERBALLY RESPONSIVE AND ABLE TO MAKE NEEDS KNOWN. SATURATING AT 93-94%. PT REFUSES TO PUT ON THE NASAL CANNULA. BREATHING EVEN AND UNLABORED. DENIES SOB OR PAIN AT THIS TIME. IN NO ACUTE DISTRESS. IV TO RAC PATENT AND INTACT. BED IN LOW/LOCKED POSITION WITH CALL LIGHT IN REACH, SIDE RAILS UPX3. BED ALARM ON FOR SAFETY. WILL CONTINUE TO MONITOR THROUGHOUT THE SHIFT.
[2019-10-06 20:00] VITALS: BP 136/67
[2019-10-06] MEDS: CEFEPIME 2 GM in IV D5W 100 ML IV SCH (21:00)
[2019-10-06] MEDS ORDERED: MUPIROCIN OINT 2% 22 GM TUBE NS SCH (21:00)
[2019-10-06] MEDS: ATORVASTATIN 10 MG TABLET PO SCH (21:35)
[2019-10-06] MEDS: MUPIROCIN OINT 2% 22 GM TUBE SCH (21:35)
--- NOTE | 2019-10-06 21:50 | NUR ---
MS/RN NOTES: INSPECTED PT'S IV LINE, AND IT'S NOTED WITH LEAKING. EXPLAINED TO THE PATIENT SHE NEEDS AN IV ACCESS FOR HER ANTIBIOTICS, AND THE IMPORTANCE OF HAVING AN IV LINE IN CASE OF EMERGENCY AND PT REFUSED. EXPLAINED THE RISKS AND BENEFITS X3, STILL REFUSED. PER PT "I'VE BEEN THROUGH A LOT OF PAIN ESPECIALLY TODAY AND YESTERDAY. MAYBE TOMORROW BUT NO, I AM REFUSING AN IV." ASKED THE PATIENT IF I CAN TAKE OUT THE OLD IV SITE, AND PT SAID TO LEAVE IT AND TAKE IT OUT TOMORROW. PT STABLE. WILL CONTINUE TO MONITOR ACCORDINGLY.
[2019-10-06] MEDS: *INSULIN REGULAR(HUMULIN R)HUM 100 UNIT/ML VIAL SQ PRN (21:55)
--- NOTE | 2019-10-06 22:00 | NUR ---
CIERRA PICKENS BLOOD SUGAR-158, PT. REFUSED INSULIN COVERAGE Addendum: 10/08/19 at 0118 by TEDDY AMAYA RN RIGHT DATE /TIME 10/07/19 AT 2200
--- NOTE | 2019-10-06 22:30 | NUR ---
MS/RN NOTES: PT REFUSES REG. INSULIN STATING "I DON'T NEED IT". EXPLAINED THE RISKS AND BENEFITS X3. STILL REFUSED.
--- NOTE | 2019-10-07 06:28 | NUR ---
MS/RN NOTES: PT REFUSES NURSING CARE THROUGHOUT THE SHIFT. REFUSED TO BE TURNED AND REPOSITIONED. REFUSED WOUND TREATMENT. PER PT "NOT NOW" I AM NOT WET." PT IS NON COMPLIANT. EXPLAINED RISKS AND BENEFITS X3. STILL REFUSED.
[2019-10-07] MEDS: BLOOD SUGAR DIAGNOSTIC 1 EACH STRIP VI SCH ×4 (07:17→21:49)
--- NOTE | 2019-10-07 07:19 | NUR ---
MS/RN NOTES: PT REFUSES BLOOD SUGAR CHECK. STARTED YELLING DURING SHIFT EXCHANGE. PER PT "STOP, PLS LEAVE ME ALONE, LET ME SLEEP". DAY SHIFT RN AWARE.
--- NOTE | 2019-10-07 07:21 | NUR ---
MS/RN CLOSING NOTES: PATIENT REMAINS RESTING COMFORTABLY IN BED. REMAINS A/OX3 VERBALLY RESPONSIVE AND ABLE TO MAKE NEEDS KNOWN. SATURATING AT 93-94%. STILL TO PUT ON THE NASAL CANNULA. BREATHING EVEN AND UNLABORED. DENIES SOB OR PAIN AT THIS TIME. NO S/S OF DISTRESS. SAFETY MEASURES MAINTAINED, BED IN LOW/LOCKED POSITION WITH CALL LIGHT IN REACH, SIDE RAILS UPX3. BED ALARM ON FOR SAFETY. PT IS NON COMPLIANT WITH NURSING CARE. REFUSES TURNING/REPOSITIONING AND HYGIENE. ENDORSED TO DAY SHIFT RN FOR YANETH.
--- NOTE | 2019-10-07 07:30 | NUR ---
MS RN NOTES RECEIVED PT IN BED, ASLEEP, EASILY AROUSED, GRUMPY AND PREFERS NOT TO BE BOTHERED STATED "STOP! I WANT TO SLEEP, I DIDNT SLEEP LAST NIGHT", A/O X3-4. PT TOLERATING RA, WITH NO ACUTE RESPIRATORY DISTRESS. PT DENIES ANY PAIN OR DISCOMFORT. PT DENIES ANY QUESTIONS AND CONCERN AT THIS TIME. PER NIGHT NURSE NO IV LINE, PT REFUSED TO BE TOUCHED, MOVED, CHANGED AND REFUSED IV MEDICATIONS. PT REFUSED FOR ME/RN TO CHECK IV SITE WELL. PT KEPT COMFORTABLE IN BED. CALL LIGHT WITHIN REACH. PT'S BED IN LOWEST, LOCKED POSITION WITH SR X3. WILL CONTINUE PLAN OF CARE.
[2019-10-07] MEDS: BENZONATATE 100 MG CAPSULE PO SCH ×3 (08:49→17:01)
[2019-10-07] MEDS: MULTIVITAMINS,THERAGRAN 1 UDTAB TABLET PO SCH (08:49)
[2019-10-07] MEDS: DOXYCYCLINE HYCLATE (100 MG) 100 MG TABLET PO SCH ×2 (08:49→21:48)
[2019-10-07] MEDS: FUROSEMIDE 40 MG/4 ML VIAL IV SCH (08:49)
[2019-10-07] MEDS: ASPIRIN EC 81 MG TABLET.DR PO SCH (08:49)
[2019-10-07] MEDS: PANTOPRAZOLE 40 MG TABLET.DR PO SCH (08:49)
[2019-10-07] MEDS: MAGNESIUM OXIDE 400 MG TABLET PO SCH ×2 (08:49→17:01)
[2019-10-07] MEDS: FOLIC ACID 1 MG TABLET PO SCH (08:49)
[2019-10-07] MEDS: APIXABAN 5 MG TABLET PO SCH ×2 (08:53→17:02)
[2019-10-07] MEDS: oxyCODONE/APAP (5/325 MG) 1 UDTAB TABLET PO PRN ×3 (08:59→22:40)
[2019-10-07] MEDS: AMLODIPINE BESYLATE 2.5 MG TABLET PO SCH (08:59)
[2019-10-07 09:00] VITALS: BP 155/62
[2019-10-07] MEDS: VALSARTAN 80 MG TABLET PO SCH ×2 (09:00→17:01)
[2019-10-07] MEDS: METOPROLOL TARTRATE 25 MG TABLET PO SCH ×2 (09:00→21:48)
[2019-10-07] MEDS: hydrALAZINE HCL 50 MG TABLET PO SCH ×3 (09:00→17:01)
[2019-10-07] MEDS: MUPIROCIN OINT 2% 22 GM TUBE SCH ×2 (09:07→21:55)
[2019-10-07] MEDS: NYSTATIN TOP POWDER 15 GM BOTTLE TP SCH ×2 (09:08→17:05)
[2019-10-07] MEDS ORDERED: DOXY100T2 PO (09:38)
--- NOTE | 2019-10-07 09:40 | NUR ---
MS RN NOTES PT KNEW BEING DISCHARGE TODAY BUT REFUSED. MD/BELEN MADE AWARE, AND OKAY TO DISCHARGE TOMORROW BACK TO THE [facility] BUT NEEDS LAB TO BE DONE TODAY. PT MADE AWARE AND INSTRUCTED REGARDING LABS, MEDS ON TIME FOR MD TO SEE IN AM. WILL CONTINUE TO MONITOR.
--- NOTE | 2019-10-07 09:45 | NUR ---
MS RN NOTES CILNICAL SCIENTIST AT BEDSIDE FOR AM LABS. /BELEN AWARE.
[2019-10-07 10:02] LABS: BASOPHILS # (AUTO) 0.1 /CMM (0.0-0.2); BASOPHILS % (AUTO) 0.2 % (0.0-2.0); EOSINOPHILS % (AUTO) 0.8 % (0.0-6.0); HEMATOCRIT 25 % (33-45); HEMOGLOBIN 7.8 g/dL (11.5-14.8); LYMPHOCYTES # (AUTO) 1.2 /CMM (0.8-4.8); LYMPHOCYTES % (AUTO) 5.9 % (20.0-44.0); MEAN CORPUSCULAR HGB CONC 32 g/dl (31.0-36.0); MEAN CORPUSCULAR VOLUME 85 fL (82-100); MONOCYTES # (AUTO) 1.5 /CMM (0.1-1.30); MONOCYTES % (AUTO) 6.8 % (2.0-12.0); NEUTROPHILS # (AUTO) 18.4 /CMM (1.8-8.9); NEUTROPHILS % (AUTO) 86.3 % (43.0-81.0); PLATELET COUNT (AUTO) 671 /CMM (150-450); WHITE BLOOD COUNT (AUTO) 21.3 K/uL (4.3-11.0)
[2019-10-07 10:16] LABS: CALCIUM, SERUM 8.9 mg/dL (8.5-10.1); CARBON DIOXIDE 25 mmol/L (21-32); CHLORIDE 91 mmol/L (98-107); CREATININE 2.3 mg/dL (0.6-1.3); GLUCOSE 164 mg/dL (74-106); POTASSIUM 4.1 mmol/L (3.5-5.1); SODIUM SERUM 124 mmol/L (136-145)
[2019-10-07 10:22] LABS: UREA NITROGEN, BLOOD 82 mg/dL (7-18)
--- NOTE | 2019-10-07 12:00 | NUR ---
MS RN NOTES FSBS 199, PT REFUSED INSULIN. PREFERS ONLY TO GET SLIDING SCALE COVERAGE IF FSBS >200. WILL CONTINUE TO MONITOR.
--- NOTE | 2019-10-07 14:48 | NUR ---
MS RN NOTES CALLED PHARMACY TWICE FOR FERLECIT. AWAITING FOR MEDICATION TO ARRIVE IN THE UNIT.
[2019-10-07] MEDS: SOD FERRIC GLUC 125 MG in IV NS 0.9% 100 ML IV SCH (14:58)
--- NOTE | 2019-10-07 15:07 | NUR ---
MS RN NOTES PT REPORTED 7/10 PAIN ON HER NECK AND UPPER BACK. PRN PERCOCET PER PT'S REQUEST GIVEN ORDERED. WILL CONTINUE TO MONITOR.
[2019-10-07 16:53] VITALS: BP 137/51
--- NOTE | 2019-10-07 18:00 | NUR ---
MS RN NOTES FSBS 193, PT REFUSED INSULIN. PREFERS ONLY TO GET SLIDING SCALE COVERAGE IF FSBS >200. WILL CONTINUE TO MONITOR.
--- NOTE | 2019-10-07 18:30 | NUR ---
MS RN NOTES PT SEEN BY ID HAND STITCHER/ERNESTINA. ANTIBIOTICS MODIFIED. PT AWARE, WILL CONTINUE TO MONITOR.
--- NOTE | 2019-10-07 18:43 | NUR ---
MS RN NOTES PT REMAINS IN BED, AWAKE, A/O X3-4. PT TOLERATING RA, WITH NO ACUTE RESPIRATORY DISTRESS. PT DENIES ANY PAIN OR DISCOMFORT. PIV TO RAC G20 SL, FLUSHED WITH NS, INTACT AND OPERATIONAL. PT KEPT COMFORTABLE IN BED. CALL LIGHT WITHIN REACH. PT'S BED IN LOWEST, LOCKED POSITION WITH SR X3. WILL ENDORSE TO INCOMING NIGHT NURSE FOR YANETH.
[2019-10-07 20:00] VITALS: BP 161/56
--- NOTE | 2019-10-07 20:30 | NUR ---
RN NOTES RECEIVED PT. AWAKE, ON BED, A/OX4, WITH LEFT LEG CELLULITIS, NOT IN DISTRESS, NO PAIN NOTED, CALL LIGHT WITHIN REACH, SIDERAILSUPX2, CONTINUE TO MONITOR
[2019-10-07] MEDS ORDERED: AMOXICILLIN TRIHYDRATE 250 MG CAPSULE ONE (21:45)
[2019-10-07] MEDS: AMOXICILLIN TRIHYDRATE 250 MG CAPSULE PO SCH (21:48)
[2019-10-07] MEDS: ATORVASTATIN 10 MG TABLET PO SCH (21:49)
--- NOTE | 2019-10-07 22:00 | NUR ---
RN NOTES BLOOD SUGAR-158 REFUSED INSULIN COVERAGE
--- NOTE | 2019-10-07 22:45 | NUR ---
RN NOTES COMAPLAINED OF LEFT LEG PAIN- PERCOCET 1 TAB PO GIVEN ORDERED, V/S STABLE
[2019-10-08] MEDS ORDERED: AMOXICILLIN TRIHYDRATE 250 MG CAPSULE ONE (04:15)
[2019-10-08] MEDS: AMOXICILLIN TRIHYDRATE 250 MG CAPSULE PO SCH ×3 (06:07→21:36)
--- NOTE | 2019-10-08 06:26 | NUR ---
RN NOTES AWAKE, MORNING CARE RENDERED, DENIES PAIN, NO SOB, CALL LIGHT MONTY CRUZ UPX2, PT. NEEDS ATTENDED
[2019-10-08 07:05] LABS: BASOPHILS # (AUTO) 0.1 /CMM (0.0-0.2); BASOPHILS % (AUTO) 0.4 % (0.0-2.0); EOSINOPHILS % (AUTO) 2.1 % (0.0-6.0); HEMATOCRIT 24 % (33-45); HEMOGLOBIN 7.5 g/dL (11.5-14.8); LYMPHOCYTES # (AUTO) 1.7 /CMM (0.8-4.8); LYMPHOCYTES % (AUTO) 10.1 % (20.0-44.0); MEAN CORPUSCULAR HGB CONC 32 g/dl (31.0-36.0); MEAN CORPUSCULAR VOLUME 84 fL (82-100); MONOCYTES # (AUTO) 1.3 /CMM (0.1-1.30); MONOCYTES % (AUTO) 7.4 % (2.0-12.0); NEUTROPHILS # (AUTO) 13.5 /CMM (1.8-8.9); PLATELET COUNT (AUTO) 665 /CMM (150-450); RED BLOOD CELL COUNT(AUTO) 2.82 MIL/uL (4.0-5.2); WHITE BLOOD COUNT (AUTO) 16.9 K/uL (4.3-11.0)
[2019-10-08 07:23] LABS: CARBON DIOXIDE 24 mmol/L (21-32); CHLORIDE 93 mmol/L (98-107); CREATININE 2.2 mg/dL (0.6-1.3); GLUCOSE 126 mg/dL (74-106); POTASSIUM 4.2 mmol/L (3.5-5.1); SODIUM SERUM 126 mmol/L (136-145)
[2019-10-08 07:28] LABS: UREA NITROGEN, BLOOD 89 mg/dL (7-18)
--- NOTE | 2019-10-08 07:30 | NUR ---
RN OPENING NOTES RECEIVED PATIENT IN BED RESTING. NOT IN ANY FORM OF DISTRESS. NO SOB. DENIED PAIN OR DISCOMFORT AT THIS TIME. IV ACCESS INTACT AND PATENT. KEPT PATIENT SAFE AND COMFORTABLE. BED IN LOW/LOCKED POSITION, SIDERAILS UPX2,CALL LIGHT IN REACH. WILL CONTINUE TO MONITOR ACCORDINGLY.
[2019-10-08 08:00] VITALS: BP 149/58
[2019-10-08] MEDS: METOPROLOL TARTRATE 25 MG TABLET PO SCH ×2 (08:43→21:36)
[2019-10-08] MEDS: BENZONATATE 100 MG CAPSULE PO SCH ×3 (08:45→17:12)
[2019-10-08] MEDS: ASPIRIN EC 81 MG TABLET.DR PO SCH (08:45)
[2019-10-08] MEDS: MULTIVITAMINS,THERAGRAN 1 UDTAB TABLET PO SCH (08:46)
[2019-10-08] MEDS: AMLODIPINE BESYLATE 2.5 MG TABLET PO SCH (08:46)
[2019-10-08] MEDS: DOXYCYCLINE HYCLATE (100 MG) 100 MG TABLET PO SCH ×2 (08:46→21:36)
[2019-10-08] MEDS: MAGNESIUM OXIDE 400 MG TABLET PO SCH ×2 (08:46→17:11)
[2019-10-08] MEDS: VALSARTAN 80 MG TABLET PO SCH ×2 (08:46→17:12)
[2019-10-08] MEDS: FOLIC ACID 1 MG TABLET PO SCH (08:46)
[2019-10-08] MEDS: APIXABAN 5 MG TABLET PO SCH ×2 (08:50→17:12)
[2019-10-08] MEDS: oxyCODONE/APAP (5/325 MG) 1 UDTAB TABLET PO PRN ×3 (09:00→20:11)
[2019-10-08] MEDS: FUROSEMIDE 40 MG/4 ML VIAL IV SCH (09:09)
[2019-10-08] MEDS: MUPIROCIN OINT 2% 22 GM TUBE SCH ×2 (09:10→21:37)
[2019-10-08] MEDS: BLOOD SUGAR DIAGNOSTIC 1 EACH STRIP VI SCH ×4 (09:11→22:00)
[2019-10-08] MEDS: PANTOPRAZOLE 40 MG TABLET.DR PO SCH (09:17)
[2019-10-08] MEDS: hydrALAZINE HCL 50 MG TABLET PO SCH ×3 (09:17→17:12)
[2019-10-08] MEDS: NYSTATIN TOP POWDER 15 GM BOTTLE TP SCH ×2 (09:18→17:27)
[2019-10-08] MEDS: POLYETHYLENE GLYCOL 3350 17 GM POWD.PACK PO PRN (10:20)
--- NOTE | 2019-10-08 10:30 | NUR ---
cleaned the patient up. changed all the beddings and sheets. wound care rendered. turned and repositioned. all needs met at this time.
--- NOTE | 2019-10-08 11:00 | NUR ---
rn notes patient asked for medication for constipation. took out miralax on the [facility]nic[facility]. when nurse about to give it to the patient, patient changed her mind stated "oh nevermind, i dont want it now.".
[2019-10-08] MEDS: SOD FERRIC GLUC 125 MG in IV NS 0.9% 100 ML IV SCH (15:26)
[2019-10-08] MEDS: EPOETIN ALFA (10,000 UNIT) 10,000 UNIT/ML VIAL SQ SCH (15:27)
--- NOTE | 2019-10-08 15:30 | NUR ---
rn notes when asked patient if she had a bowel movement today, patient stated "No, just been passing gas a lot.". Offered miralax again but patient said "i dont need it now.".
[2019-10-08 16:00] VITALS: BP 145/62
--- NOTE | 2019-10-08 16:00 | NUR ---
cleaned the patient up again. beddings and sheets. wound care rendered. turned and repositioned. all needs met at this time. Addendum: 10/08/19 at 1642 by ZIGGY SEE changed beddings and sheets
--- NOTE | 2019-10-08 16:22 | NUR ---
rn notes patient iv access on right ac was leaking, removed it, applied pressure, no bleeding. attempted to insert new iv access the first time but unsuccessful. now patient is refusing to be poke again. notified dr peterson
--- NOTE | 2019-10-08 18:56 | NUR ---
RN CLOSING NOTES PATIENT IN STABLE CONDITION. ALL NEEDS ATTENDED AND PROVIDED. ALL DUE MEDS GIVEN ORDERED. KEPT PATIENT SAFE AND COMFORTABLE. BED IN LOW/LOCKED POSITION. SIDERAILS UPX2, CALL LIGHT IN REACH. WILL ENDORSE TO NIGHT NURSE ACCORDINGLY.
--- NOTE | 2019-10-08 19:10 | NUR ---
MS RN OPENING NOTES: RECEIVED PATIENT IN BED, AWAKE, A/O X4. NO SOB NOTED. NO COMPLAIN OF PAIN. CALL LIGHT WITHIN REACH. BED ALARM ON. BED IN LOWEST AND LOCKED POSITION. ON CONTACT ISOLATION MRSA NARES. WITH BILATERAL FEET AND LEGS PITTING EDEMA. PER REPORTS PATIENT REFUSED TO HAVE IV REINSERTION AND NOTIFIED. WITH O2 AT 2L/MIN. HOB ELEVATED. WITH BOTH LEGS SEVERE WEAKNESS. ICE PACK GIVEN PER PATIENT'S REQUEST.
--- NOTE | 2019-10-08 19:59 | NUR ---
TALKED TO THE PATIENT RE: IMPORTANCE OF IV. ADVISED THE PATIENT THE BENEFITS OF HAVING IV, PATIENT REFUSED STILL. ADVISED THE PATIENT TO CALL IF SHE SHE CHANGED HER MIND.
[2019-10-08 20:00] VITALS: BP_SYST 135; BP_SYST 137; BP_DIAS 49
--- NOTE | 2019-10-08 21:10 | NUR ---
CÉSAR-CARE DONE, ALL LINEN AND GOWN CHANGED. WITH LEFT BREAST SKIN FOLD SKIN ERYTHEMA WITH SKIN BREAKDOWN NOTED, CLEANSED WITH NS, PAT DRIED AND APPLIED NYASTATIN POWDER. RIGHT BREAST SKIN FOLD- NO ERYTHEMA NOTED. CLEANSED WITH NS, PAT DRIED, AND APPLIED LITTLE OF NYASTATIN POWDER. TURNED THE PATIENT TO THE RIGHT SIDE. OFFLOADED. CALL LIGHT WITHIN REACH. BED ALARM ON. BED IN LOWEST AND LOCKED POSITION. PHONE WITHIN REACH.
[2019-10-08] MEDS: ATORVASTATIN 10 MG TABLET PO SCH (21:36)
[2019-10-08] MEDS: *INSULIN REGULAR(HUMULIN R)HUM 100 UNIT/ML VIAL SQ PRN ×2 (21:46→21:50)
--- NOTE | 2019-10-08 21:49 | NUR ---
BLOOD SUGAR= 164, PATIENT REFUSED INSULIN. PATIENT STATES IF THE BLOOD SUGAR IS LESS THAN 200, NO INSULIN.
[2019-10-09] MEDS: AMOXICILLIN TRIHYDRATE 250 MG CAPSULE PO SCH ×2 (05:15→12:41)
[2019-10-09] MEDS: oxyCODONE/APAP (5/325 MG) 1 UDTAB TABLET PO PRN ×2 (05:32→15:37)
--- NOTE | 2019-10-09 05:53 | NUR ---
MS RN CLOSING NOTES: PATIENT IN BED, AWAKE. A/O X4. NO SOB NOTED. PERCOCET 1 TAB PO GIVEN FOR PAIN. WOUND TREATMENT ON THE LEFT LOWER LEG DONE- CLEANSED WITH NS,PAT DRIED, AND APPLIED XEROFORM TO WOUND BASE AND COVERED WITH DRY DRESSING. OFFLOADED. DTI ON THE UPPERBACK AND RIGHT BUTTOCK-MEPILEX DRESSING APPLIED. OFFLOADED. TURNED AND REPOSITIONED. BED ALARM ON. BED IN LOWEST AND LOCKED POSITION. HOB ELEVATED AT ALL TIMES. CALL LIGHTWITHIN REACH. RESTED THROUGHOUT THE NIGHT.CONTACT ISOLATION OBSERVED AT ALL TIMES.
[2019-10-09] MEDS: INSULIN REGULAR, HUMAN 100 UNIT/ML 3 ML VIAL SQ PRN (06:35)
--- NOTE | 2019-10-09 06:35 | NUR ---
BLOOD SUGAR CHECKED= 130, NO INSULIN GIVEN PER PATIENT'S REQUEST.
[2019-10-09] MEDS: BLOOD SUGAR DIAGNOSTIC 1 EACH STRIP VI SCH ×3 (07:26→17:15)
--- NOTE | 2019-10-09 07:40 | NUR ---
RN NOTES RECEIVED PATIENT IN BED RESTING COMFORTABLY IN MODERATE HIGH BACK REST. A/O X4. NO SIGNS OF DISTRESS NOTED AT THIS TIME. NO IV ACCESS, MD AWARE. SAFETY MEASURES IN PLACE, BED IN LOW/LOCKED POSITION, SIDERAILS UPX2,CALL LIGHT IN REACH. WILL CONTINUE TO MONITOR.
[2019-10-09 08:38] LABS: BASOPHILS # (AUTO) 0.1 /CMM (0.0-0.2); BASOPHILS % (AUTO) 0.6 % (0.0-2.0); HEMATOCRIT 26 % (33-45); HEMOGLOBIN 8.1 g/dL (11.5-14.8); LYMPHOCYTES # (AUTO) 1.2 /CMM (0.8-4.8); LYMPHOCYTES % (AUTO) 7.9 % (20.0-44.0); MEAN CORPUSCULAR HGB CONC 31 g/dl (31.0-36.0); MEAN CORPUSCULAR VOLUME 85 fL (82-100); MONOCYTES % (AUTO) 6.9 % (2.0-12.0); NEUTROPHILS # (AUTO) 12.5 /CMM (1.8-8.9); NEUTROPHILS % (AUTO) 82.6 % (43.0-81.0); PLATELET COUNT (AUTO) 734 /CMM (150-450); RED BLOOD CELL COUNT(AUTO) 3.05 MIL/uL (4.0-5.2); WHITE BLOOD COUNT (AUTO) 15.2 K/uL (4.3-11.0)
[2019-10-09 08:40] LABS: CALCIUM, SERUM 9.5 mg/dL (8.5-10.1); CARBON DIOXIDE 23 mmol/L (21-32); CHLORIDE 92 mmol/L (98-107); CREATININE 1.9 mg/dL (0.6-1.3); GLUCOSE 176 mg/dL (74-106); POTASSIUM 4.1 mmol/L (3.5-5.1); SODIUM SERUM 126 mmol/L (136-145)
[2019-10-09] MEDS: MULTIVITAMINS,THERAGRAN 1 UDTAB TABLET PO SCH (08:47)
[2019-10-09] MEDS: METOPROLOL TARTRATE 25 MG TABLET PO SCH (08:48)
[2019-10-09] MEDS: MAGNESIUM OXIDE 400 MG TABLET PO SCH ×2 (08:48→16:46)
[2019-10-09] MEDS: hydrALAZINE HCL 50 MG TABLET PO SCH ×3 (08:48→17:00)
[2019-10-09] MEDS: FOLIC ACID 1 MG TABLET PO SCH (08:49)
[2019-10-09] MEDS: AMLODIPINE BESYLATE 2.5 MG TABLET PO SCH (08:49)
[2019-10-09] MEDS: POLYETHYLENE GLYCOL 3350 17 GM POWD.PACK PO PRN (08:49)
[2019-10-09] MEDS: DOXYCYCLINE HYCLATE (100 MG) 100 MG TABLET PO SCH (08:49)
[2019-10-09] MEDS: ASPIRIN EC 81 MG TABLET.DR PO SCH (08:49)
[2019-10-09] MEDS: VALSARTAN 80 MG TABLET PO SCH ×2 (08:49→17:00)
[2019-10-09] MEDS: BENZONATATE 100 MG CAPSULE PO SCH ×3 (08:49→16:46)
[2019-10-09] MEDS: PANTOPRAZOLE 40 MG TABLET.DR PO SCH (08:49)
[2019-10-09] MEDS: APIXABAN 5 MG TABLET PO SCH ×2 (08:51→16:49)
[2019-10-09 08:52] LABS: UREA NITROGEN, BLOOD 88 mg/dL (7-18)
[2019-10-09] MEDS: FUROSEMIDE 40 MG/4 ML VIAL IV SCH (09:00)
[2019-10-09] MEDS: MUPIROCIN OINT 2% 22 GM TUBE SCH (09:03)
[2019-10-09] MEDS: NYSTATIN TOP POWDER 15 GM BOTTLE TP SCH ×2 (09:04→17:21)
--- NOTE | 2019-10-09 09:05 | NUR ---
RN NOTES PATIENT REFUSED LASIX, WASTE MEDICATION WITH CIERRA OLIVAS. WILL CONTINUE TO MONITOR.
[2019-10-09] MEDS ORDERED: AMOX250C PO (09:39)
--- NOTE | 2019-10-09 11:42 | NUR ---
RN NOTES BS 165, PATIENT REFUSED INSULIN COVERAGE, SHE SAID SHE WILL ONLY TAKE INSULIN IF BS IS >200. EXPLAINED RISKS AND BENEFITS BUT PATIENT STILL REFUSED. WILL CONTINUE TO MONITOR.
[2019-10-09] MEDS: SOD FERRIC GLUC 125 MG in IV NS 0.9% 100 ML IV SCH ×2 (14:00→14:43)
[2019-10-09 17:00] VITALS: BP 145/55
--- NOTE | 2019-10-09 17:15 | NUR ---
RN NOTES BS 163, PATIENT REFUSED INSULIN COVERAGE, SHE SAID SHE WILL ONLY TAKE INSULIN IF BS IS >200. EXPLAINED RISKS AND BENEFITS BUT PATIENT STILL REFUSED. WILL CONTINUE TO MONITOR.
--- NOTE | 2019-10-09 18:26 | NUR ---
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 A/O X4. ABLE TO MAKE NEEDS KNOWN. V/S TAKEN, STABLE AND RECORDED. NO IV ACCESS. NAME ARM BAND REMOVED. REFUSED PHYSICAL ASSESSMENT AND PICTURES. ALL BELONGINGS SIGNED AND CHECKED. HEALTH TEACHINGS/DISCHARGED INSTRUCTIONS GIVEN AND VERBALIZED UNDERSTANDING. PATIENT LEFT UNIT VIA GURNEY WITH 2 AMBULANCE STAFF. NO SIGNS OF DISTRESS NOTED. CHARGE NURSE AWARE OF DISCHARGED.
== END 2019-10-09 18:30 | DRG 291 ==
LOC: ER 11:57 → MEDSG1 14:26 → TELE1 14:49 → MEDSG1 10-04 11:54 → MEDSG2 10-04 20:53
PROVIDERS: ADMIT Internal Medicine; ATTEND Internal Medicine
DX: I13.0 Hypertensive heart and chronic kidney disease with heart failure and stage 1 through stage 4 chronic kidney disease, or unspecified chronic kidney disease (principal); J96.21 Acute and chronic respiratory failure with hypoxia; I50.33 Acute on chronic diastolic (congestive) heart failure; N17.0 Acute kidney failure with tubular necrosis; J15.9 Unspecified bacterial pneumonia; D68.59 Other primary thrombophilia; E87.1 Hypo-osmolality and hyponatremia; N39.0 Urinary tract infection, site not specified; J44.0 Chronic obstructive pulmonary disease with (acute) lower respiratory infection; L97.829 Non-pressure chronic ulcer of other part of left lower leg with unspecified severity; L03.116 Cellulitis of left lower limb; E66.2 Morbid (severe) obesity with alveolar hypoventilation; E11.9 Type 2 diabetes mellitus without complications; I25.10 Atherosclerotic heart disease of native coronary artery without angina pectoris; I10 Essential (primary) hypertension; E78.5 Hyperlipidemia, unspecified; E11.22 Type 2 diabetes mellitus with diabetic chronic kidney disease; D63.8 Anemia in other chronic diseases classified elsewhere; N18.9 Chronic kidney disease, unspecified; I27.20 Pulmonary hypertension, unspecified; Z90.49 Acquired absence of other specified parts of digestive tract; Z79.4 Long term (current) use of insulin; Z79.82 Long term (current) use of aspirin; Z79.899 Other long term (current) drug therapy; Z88.5 Allergy status to narcotic agent; Z88.8 Allergy status to other drugs, medicaments and biological substances; Z79.01 Long term (current) use of anticoagulants; Z87.891 Personal history of nicotine dependence; Z88.1 Allergy status to other antibiotic agents; I87.2 Venous insufficiency (chronic) (peripheral); Z74.09 Other reduced mobility; E66.9 Obesity, unspecified; Z68.26 Body mass index [BMI] 26.0-26.9, adult; I48.0 Paroxysmal atrial fibrillation; I89.0 Lymphedema, not elsewhere classified; L30.4 Erythema intertrigo; L89.106 Pressure-induced deep tissue damage of unspecified part of back; L89.316 Pressure-induced deep tissue damage of right buttock
CPT/HCPCS: 36415; 71045-TC; 71250-TC; 80048-TC; 80053-TC; 80076-TC; 81000-TC; 82550-TC; 82570-TC; 82728-TC; 82962-TC; 83540-TC; 83735-TC; 83880; 83935-TC; 83970; 84100-TC; 84155; 84155-TC; 84165; 84300-TC; 84443-TC; 84484-TC; 84550-TC; 85025-TC; 85730-TC; 87081-TC; 87086-TC; 93307-TC; 93971-TC; 97530-TC; G0378; J0692; J0885; J1815; J1940; J2543; J2916; J7030; J7050; J7060; U0003-CS